=== PATIENT | female | born 1975 | race Caucasian/White ===

== ENCOUNTER 2016-12-18 19:47 | Inpatient (IN) ==
[2016-12-18] MEDS ORDERED: MOTRIN PO ONE (20:01)
[2016-12-18 20:44] LABS: BILIRUBIN URINE NEGATIVE (NEGATIVE); BLOOD URINE 2+ (NEGATIVE); CLARITY CLEAR (CLEAR); COLOR YELLOW; GLUCOSE URINE NEGATIVE (NEGATIVE); LEUKOCYTES URINE 2+ (NEGATIVE); NITRITE URINE POSITIVE (NEGATIVE); PROTEIN URINE 2+(100 mg/dL) mg/dL (NEGATIVE); URINE EPITHELIAL CELLS <10 /HPF (<10); URINE WBC <10 /HPF (<10); UROBILINOGEN URINE NORMAL
[2016-12-18 20:45] LABS: URINE CAST NONE SEEN /LPF; URINE CRYSTAL NONE SEEN /HPF; URINE CULTURE PL NEEDED? YES; URINE SOURCE CLEAN CATCH
[2016-12-18] MEDS ORDERED: DEMEROL IV ONE (21:06)
[2016-12-18] MEDS ORDERED: PHENERGAN IV ONE (21:06)
[2016-12-18 21:23] LABS: BASO% 0.2 % (0.0-0.8); EOS# 0.02 X1000 (0.0-0.7); EOS% 0.1 % (0.0-10.0); HEMATOCRIT 28.8 % (37.0-47.0); HEMOGLOBIN 8.5 g/dL (12.0-16.0); IMM GRAN# 0.08 X1000 (0.0-0.04); IMM GRAN% 0.4 % (0.0-0.5); LYMPH# 1.47 X1000 (1.2-3.4); MANUAL DIFF NEEDED? NO; MCH 20.7 PG (27-31); MCHC 29.5 g/dL (33-37); MCV 70.2 FL (81-99); MONO# 1.63 X1000 (0.11-0.59); MONO% 7.7 % (1.7-9.3); MPV 9.5 FL (7.4-10.4); NEUT% 84.6 % (42.2-75.2); PLT 258 X1000 (130-400)
[2016-12-18 21:39] LABS: AGAP 14; ALBUMIN 3.8 g/dL (3.5-5.0); ALKALINE PHOSPHATASE 67 U/L (32-104); AMYLASE 32 U/L (20-200); BUN 6 mg/dL (8-22); CALCIUM 8.9 mg/dL (8.8-10.2); CHLORIDE 93 mmol/L (98-107); COSMO 254; GOT 12 U/L (10-30); GPT 15 U/L (10-36); LIPASE 15 U/L (13-60); SODIUM 127 mmol/L (136-145); TCO2 20 mmol/L (25-35); TOTAL PROTEIN 6.6 g/dL (6.3-8.3)
[2016-12-18] MEDS ORDERED: NORCO-7.5 PO PRN (21:53)
[2016-12-18] MEDS ORDERED: NS 1,000 ML IV ONE (21:53)
[2016-12-18] MEDS ORDERED: GENTAMICIN IV PER PHARMACY MISC SCH (22:00)
--- NOTE | 2016-12-18 22:48 | Diag Imaging Result Doc PS360 ---
EXAM: CT ABD/PELVIS W/ IV CONT ONLY HISTORY: pain TECHNIQUE: Dose reduction protocol COMPARISON: None. FINDINGS: Normal spleen, pancreas, gallbladder, and adrenal glands. Tiny hypodense hepatic lesion which is nonspecific but may simply represent a cyst. There are several small left renal cysts. Irregular enhancement of the right kidney. Slight distention to the right ureter. Normal aorta. There is a fat filled small anterior abdominal wall hernia several centimeters above the umbilicus. Small amount of fluid is present within it. Stool is found throughout the colon. Air-filled loops of small bowel with slight distention in the midabdomen. Questionable fibroid in the posterior uterus measuring 4 cm. Small ovarian cysts. IMPRESSION: 1.Right-sided pyelonephritis 2.Small anterior abdominal wall hernia 3.Constipation 4.I believe there is a uterine fibroid 5.Possible enteritis or ileus. Electronically signed by Antoni Hatfield 12/18/2016 10:46 PM
[2016-12-18] MEDS ORDERED: GENTAMICIN IV SCH (23:00)
[2016-12-18] MEDS: ROCEPHIN 1 GM/NS 1 GM/50 ML IVPB IV SCH (23:00)
[2016-12-18] MEDS ORDERED: NS IV SCH (23:00)
[2016-12-19] MEDS ORDERED: NS IV SCH (04:35)
[2016-12-19] MEDS ORDERED: GENTAMICIN IV SCH (04:35)
[2016-12-19] MEDS: NORCO-7.5 PO PRN ×2 (08:48→22:18)
[2016-12-19] MEDS: TYLENOL PO PRN ×2 (09:45→16:45)
[2016-12-19] MEDS: NS 1,000 ML IV SCH ×3 (09:49→22:18)
[2016-12-19 12:28] LABS: HEMATOCRIT 26.7 % (37.0-47.0); HEMOGLOBIN 7.8 g/dL (12.0-16.0); MCH 20.8 PG (27-31); MCHC 29.2 g/dL (33-37); MCV 71.2 FL (81-99); MPV 9.2 FL (7.4-10.4); RBC 3.75 XMIL (4.2-5.4)
[2016-12-19 12:46] LABS: AGAP 12; BUN 11 mg/dL (8-22); CALCIUM 8.2 mg/dL (8.8-10.2); CHLORIDE 99 mmol/L (98-107); COSMO 266; POTASSIUM 3.5 mmol/L (3.5-5.1); SODIUM 133 mmol/L (136-145); TCO2 22 mmol/L (25-35)
[2016-12-19] MEDS ORDERED: LACTULOSE PO ONE (14:52)
--- NOTE | 2016-12-19 15:20 | HISTORY AND PHYSICAL ---
CHIEF COMPLAINT: Right flank pain. Right lower quadrant pain x3 days. Fever. HISTORY OF PRESENT ILLNESS: This is a 41-year-old female with a prior history of medullary sponge kidney and prior substance abuse. She presented to the emergency room complaining of 3 days of right flank pain and right lower quadrant pain. Describing this pain as an aching type pain, she rates it as 7/10 at its worst and 1- 2/10 at its least. She has no other accompanying symptoms. No relieving or exacerbating symptoms. She denies recent kidney stone. She did say that on Sunday she fell at work and landed on her back and she was not evaluated prior to this ER visit. She was noted to have a temperature of 102.6 degrees in triage with a white count of 21. Blood cultures and urine culture were drawn. CT of the abdomen and pelvis revealed no stones, no hydro with right-sided pyelonephritis, constipation and possible enteritis or ileus. She was given gentamicin and Rocephin in the emergency room and admitted for further evaluation and treatment. PAST MEDICAL HISTORY: Medullary sponge kidney, frequent UTI. PAST SURGICAL HISTORY: . SOCIAL HISTORY: She smokes half a pack a day. She has prior substance abuse, but has been clean for 11 months. ALLERGIES: Levaquin which causes a rash. HOME MEDICATIONS: None. REVIEW OF SYSTEMS: A 14 point review of systems is discussed with patient with pertinent positives being right flank pain, right lower quadrant pain. She denied chest pain, palpitations, syncope, dizziness, shortness of breath, cough, PND, orthopnea, nausea, vomiting , diarrhea, constipation, black or bloody vomitus, black or bloody stools, hematuria, dysuria. frequency, urgency. PHYSICAL EXAMINATION: VITAL SIGNS: Blood pressure is 110/49 with a heart rate of 96, respirations are 20, temperature is 99.4 degrees with oxygen saturation of 97% on room air. CARDIOVASCULAR: Regular rate and rhythm. S1 and S2 are appreciated. PULMONARY: Breath sounds are clear with no increased work of breathing noted. GASTROINTESTINAL: Abdomen is soft, nontender, nondistended with bowel sounds in all 4 quadrants. BACK: No CVAT. No spine tenderness. MUSCULOSKELETAL: Good range of motion to joints. NEUROLOGIC: She is alert and oriented x3 with cranial nerves 2-12 grossly intact. SKIN: Warm and dry with no rashes or lesions noted. DIAGNOSTICS: WBC is 21.06 with hemoglobin 8.5, hematocrit 28.8, platelets of 258. Sodium is 127, potassium 3, BUN 6, creatinine 0.6 with a glucose of 113. Urinalysis is positive for protein, 2+ blood and nitrites, 10-20 microscopic red blood cells, but less than 10 microscopic white blood cells. Urine culture is pending. CT of the abdomen and pelvis as stated above. ASSESSMENT: 1. Leukocytosis. 2. Right flank pain after a fall 24 hours prior. 3. Hypokalemia. 4. Fever. 5. Questionable urinary tract infection. 6. Constipation. PLAN: The patient will be admitted to the hospital. Blood cultures and urine cultures were drawn in the emergency room. She was given Rocephin. We will add gentamicin and we will continue awaiting culture results. We will give hydration, trend labs. She does state that this started after a fall landing on her back at work, so we will continue the Motrin q. 6 hours. She is noted to be pretty constipated on the CT. We will give lactulose and MiraLAX. Further treatments pending hospital course. Dictated by GILA Alvarez for Heber Lundberg MD cc: GILA Alvarez MD pt examined, agree with above APENOT MTDD
[2016-12-19] MEDS ORDERED: TORADOL IV ONE (15:48)
[2016-12-19] MEDS ORDERED: MORPHINE IV PRN (15:48)
[2016-12-19 17:31] LABS: UR AMPHETAMINES QUAL PRESUMPTIVE POSITIVE (NONE DETECT); UR BARBITUATES QUAL NONE DETECTED (NONE DETECT); UR BENZODIAZEPIN QUAL NONE DETECTED (NONE DETECT); UR COCAINE QUAL NONE DETECTED (NONE DETECT); UR MDMA QUAL NONE DETECTED (NONE DETECT); UR METHADONE QUAL NONE DETECTED (NONE DETECT)
[2016-12-19 17:32] LABS: UR CANNABINOIDS QUAL NONE DETECTED (NONE DETECT); UR METHAMPHETAMINE QUAL PRESUMPTIVE POSITIVE (NONE DETECT); UR OPIATES QUAL NONE DETECTED (NONE DETECT); UR OXYCODONE QUAL NONE DETECTED (NONE DETECT); UR PCP QUAL NONE DETECTED (NONE DETECT); UR TCA QUAL NONE DETECTED (NONE DETECT)
[2016-12-19] MEDS: MIRALAX PO SCH (22:17)
[2016-12-19] MEDS: ROCEPHIN 1 GM/NS 1 GM/50 ML IVPB IV SCH (22:17)
[2016-12-19] MEDS: MOTRIN PO PRN (22:18)
[2016-12-20] MEDS: GENTAMICIN IV SCH (01:08)
[2016-12-20] MEDS: NS 1,000 ML IV SCH (01:08)
[2016-12-20] MEDS: NS IV SCH (01:08)
[2016-12-20] MEDS: NORCO-7.5 PO PRN ×2 (04:33→16:35)
[2016-12-20 06:55] LABS: HEMATOCRIT 25.2 % (37.0-47.0); HEMOGLOBIN 7.1 g/dL (12.0-16.0); MCH 20.2 PG (27-31); MCHC 28.2 g/dL (33-37); MCV 71.8 FL (81-99); RBC 3.51 XMIL (4.2-5.4)
[2016-12-20 07:04] LABS: AGAP 13; BUN 12 mg/dL (8-22); CALCIUM 8.4 mg/dL (8.8-10.2); CHLORIDE 103 mmol/L (98-107); COSMO 271; POTASSIUM 3.1 mmol/L (3.5-5.1); SODIUM 136 mmol/L (136-145); TCO2 21 mmol/L (25-35)
[2016-12-20 07:06] LABS: IRON SATURATION 3 %; TIBC 258 ug/dL
[2016-12-20 07:07] LABS: TOTAL IRON 7 ug/dL (49-151); UNBOUND IRON 251 ug/dL (112-346)
[2016-12-20] MEDS: MIRALAX PO SCH ×2 (08:30→20:51)
[2016-12-20] MEDS: MOTRIN PO PRN (08:31)
[2016-12-20] MEDS ORDERED: POTASSIUM CHLORIDE IV SCH (10:30)
[2016-12-20] MEDS ORDERED: KCL IV SCH (10:30)
[2016-12-20] MEDS ORDERED: NS IV SCH (10:30)
[2016-12-20] MEDS: NS + KCL 40 MEQ 1,000 ML IV SCH ×2 (11:06→20:50)
[2016-12-20] MEDS: FOLIC ACID 1 MG in NS 50 ML IV SCH (14:30)
[2016-12-20] MEDS: LACTULOSE PO SCH (14:30)
--- NOTE | 2016-12-20 14:48 | PROGRESS NOTE ---
DATE: 12/20/2016 SUBJECTIVE: The patient is asleep at the time of exam. She does wake to her name being called. She denies any complaints. She does doze back off to sleep. OBJECTIVE: Vital Signs: Blood pressure is 109/60, with a heart rate of 88, respirations are 20, temperature is 99 degrees, with room air saturations of 100%. Cardiovascular: Regular rate and rhythm. S1, S2 appreciated. Pulmonary: Breath sounds are clear. No increased work of breathing noted. Gastrointestinal: Abdomen soft, nontender, nondistended with bowel sounds in all 4 quadrants. Musculoskeletal: Good range of motion of joints. Neurologic: She is alert and oriented x3. LABS: Her WBC is 14.9 with a hemoglobin of 7.1, hematocrit 25.2, and platelets of 231,000. Sodium 136, potassium 3.1, BUN 12, creatinine 0.7, with a glucose of 84. ASSESSMENT AND PLAN: 1. Anemia. We have no prior hemoglobin and hematocrit to compare to. She denies any known source of bleeding or any history of GI bleed. Will Hemoccult stools. We will transfuse 1 unit of packed cells and trend her labs. 2. Leukocytosis. WBC is decreasing. We will continue with her antibiotics. Of note, she does have 1 blood culture as well as a urine culture that her growing gram- negative rods. The 2nd blood culture has no growth after 48 hours. 3. Right flank pain. The patient states that her pain is better controlled. It is being controlled with Preston 7.5. It looks like she is getting it every 6 hours. We will continue this. 4. Hypokalemia. Will replete and follow electrolytes. 5. Fever. We will continue to monitor her vital signs. 6. Urinary tract infection. She is growing gram-negative rods. We will continue with her IV coverage. Once sensitivities return, antibiotics may be changed as appropriate. 7. Constipation. We will continue with her bowel regimen of MiraLAX b.i.d. We will add lactulose daily as she has not had a bowel movement. Further treatments pending hospital course. Dictated by GILA Alvarez for Heber Lundberg MD cc: GILA Alvarez MD pt examined, agree with above APENOT MTDD
[2016-12-20 17:53] LABS: OCCULT BLOOD 1 NEGATIVE (NEGATIVE)
[2016-12-20] MEDS: ROCEPHIN 1 GM/NS 1 GM/50 ML IVPB IV SCH ×2 (20:50→21:32)
[2016-12-20] MEDS: TYLENOL PO PRN (20:51)
[2016-12-21] MEDS: NORCO-7.5 PO PRN ×4 (00:06→22:51)
[2016-12-21] MEDS: GENTAMICIN IV SCH (00:06)
[2016-12-21] MEDS: NS IV SCH (00:06)
[2016-12-21] MEDS: MOTRIN PO PRN ×3 (00:07→16:33)
[2016-12-21 07:19] LABS: HEMATOCRIT 29.9 % (37.0-47.0); MCH 21.8 PG (27-31); MCHC 30.1 g/dL (33-37); MCV 72.6 FL (81-99); MPV 10.6 FL (7.4-10.4); RBC 4.12 XMIL (4.2-5.4)
[2016-12-21 07:34] LABS: AGAP 15; BUN 7 mg/dL (8-22); CALCIUM 8.4 mg/dL (8.8-10.2); CHLORIDE 106 mmol/L (98-107); COSMO 274; MAGNESIUM 1.7 mg/dL (1.5-2.7); SODIUM 139 mmol/L (136-145); TCO2 18 mmol/L (25-35)
[2016-12-21] MEDS: NS + KCL 40 MEQ 1,000 ML IV SCH ×2 (08:48→19:48)
[2016-12-21] MEDS: LACTULOSE PO SCH (08:49)
[2016-12-21] MEDS: MIRALAX PO SCH ×2 (08:49→20:54)
[2016-12-21] MEDS: FOLIC ACID 1 MG in NS 50 ML IV SCH (15:10)
--- NOTE | 2016-12-21 15:19 | Diag Imaging Result Doc PS360 ---
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 FINDINGS: There are several hypoechoic masses involving the wall of the uterus, most compatible with uterine leiomyomas. The largest measures up to 3.8 x 3.3 x 3.2 cm. The uterus measures 8.7 x 6.3 x 6.8 cm. The endometrium measures up to 1.2 cm in thickness. The left ovary is obscured by overlying bowel. There are several normal-appearing right ovarian follicles measuring up to a centimeter. The right ovary measures up to 3.5 cm in the greatest dimension. There is a small amount of fluid in the pelvis, mainly around the right ovary. This is nonspecific but is often physiologic. The right ovary exhibits normal Doppler flow. There are no definite solid adnexal masses. IMPRESSION: 1.Several hypoechoic uterine wall masses, most compatible with uterine leiomyomas. 2.Small amount of pelvic free fluid, mainly around the right ovary that is probably physiologic. Electronically signed by Andrea De León 12/21/2016 3:16 PM
--- NOTE | 2016-12-21 19:38 | PROGRESS NOTE ---
DATE: 12/21/2016 SUBJECTIVE: The patient states that she feels much better than when she was admitted although she still is not back to her normal. She denies any chest pain, shortness of breath , cough, fever or chills. OBJECTIVE: Vital Signs: Blood pressure is 137/70 with a heart rate of 86, respirations 19, temperature is 99 degrees with room air saturations of 97-99%. Cardiovascular: Regular rate and rhythm. S1, S2 appreciated. Pulmonary: Breath sounds are clear. No increased work of breathing noted. Gastrointestinal: Soft, nontender, nondistended. Bowel sounds in all 4 quadrants. Musculoskeletal: Good range of motion of joints. Neurologic: She is alert and oriented x3. LABS: WBC is 7 with hemoglobin 9, hematocrit 29.9, platelets of 187,000. Sodium is 139, potassium 4, BUN 7, creatinine 0.8, glucose of 77. Stool for occult blood is negative. ASSESSMENT AND PLAN: 1. Anemia. The patient denies any bleeding, black or bloody vomitus or stools while hospitalized. Her Hemoccult was negative. We will continue to monitor her hemoglobin and hematocrit. 4. Hypokalemia. Resolved. 6. E. coli urinary tract infection/pyelonephritis/sepsis This is resistant to Bactrim, ampicillin and Augmentin. We will continue gentamicin as well as Rocephin. 7. Constipation. We will continue with bowel regimen. She had 3 bowel movements in the last 24 hours. 8. E. coli blood culture to right hand although blood culture to left AC had no growth. We will repeat blood cultures. Continue antibiotics. Dictated by GILA Alvarez for Heber Lundberg MD cc: GILA Alvarez MD pt examined, continue iv abx and follow closely , [facility] was [facility]
[2016-12-21] MEDS: ROCEPHIN 1 GM/NS 1 GM/50 ML IVPB IV SCH (21:34)
[2016-12-21] MEDS: TYLENOL PO PRN (22:56)
[2016-12-22] MEDS: NS IV SCH ×2 (00:25→23:38)
[2016-12-22] MEDS: GENTAMICIN IV SCH ×2 (00:25→23:38)
[2016-12-22] MEDS: MOTRIN PO PRN ×2 (03:55→15:17)
[2016-12-22] MEDS: NORCO-7.5 PO PRN ×4 (04:59→22:52)
[2016-12-22] MEDS: NS + KCL 40 MEQ 1,000 ML IV SCH (06:30)
[2016-12-22 06:35] LABS: AGAP 11; BUN 5 mg/dL (8-22); CALCIUM 7.9 mg/dL (8.8-10.2); CHLORIDE 99 mmol/L (98-107); COSMO 262; POTASSIUM 4.3 mmol/L (3.5-5.1); SODIUM 132 mmol/L (136-145); TCO2 22 mmol/L (25-35)
[2016-12-22 06:46] LABS: HEMATOCRIT 27.1 % (37.0-47.0); MCH 21.3 PG (27-31); MCHC 29.5 g/dL (33-37); MCV 72.1 FL (81-99); MPV 10.3 FL (7.4-10.4); RBC 3.76 XMIL (4.2-5.4)
[2016-12-22] MEDS: LACTULOSE PO SCH (10:47)
[2016-12-22] MEDS: MIRALAX PO SCH ×2 (10:47→21:09)
[2016-12-22] MEDS: ICAR-C PO SCH ×2 (10:52→21:09)
--- NOTE | 2016-12-22 10:55 | PROGRESS NOTE ---
DATE: 12/22/2016 SUBJECTIVE: The patient states she feels much better today. She has menstrual cramps that began yesterday. She states they are not as severe today. She denies any chest pain , shortness of breath, cough, fever or chills. OBJECTIVE: Vital Signs: Blood pressure is 130/71 with a heart rate of 72, respirations 16, temperature 99.7 oral with room air saturations of 94% to 97%. Cardiovascular: Regular rate and rhythm S1, S2 appreciated. Pulmonary: Breath sounds are clear. No increased work of breathing noted. Gastrointestinal: Soft, nontender, nondistended. Bowel sounds in all 4 quadrants. Musculoskeletal: Good range of motion of joints. Neurologic: She is alert and orient x3. Extremities: No clubbing, cyanosis, or edema. Calves are nontender. Pulses are palpable x4. LABS: WBC is 7.87 with hemoglobin of 8, hematocrit 27.1, and platelets of 208, 000. Sodium is 132, potassium 4.3, BUN 5, creatinine 0.7 with a glucose of 96. ASSESSMENT AND PLAN: 1. Anemia. The patient has started her menstrual period. She states that she had to has known fibroids and that she has been having increased menstrual periods having them every 2-3 weeks. This one started less than 2 weeks from the last. We will start her on iron and continue to monitor her hemoglobin and hematocrit. She will need to be followed up with Gynecology. 2. Leukocytosis, resolved. 3. Right flank pain. This has resolved. 4. Hypokalemia, resolved. 5. Escherichia coli urinary tract infection/pyelonephritis. We will continue with the current antibiotics. 6. Constipation. We will continue bowel regimen. She has had another bowel movement. 7. Escherichia coli blood culture to right hand with culture left arm No growth. This was obtained on 12/18/2016. We repeated blood cultures on 12/21/2106. We are waiting for their results to verify bacteremia vs contamination. Dictated by GILA Alvarez for Heber Lundberg MD cc: GILA Alvarez MD pt still with fever, will continue abx and follow closely, needs to ambulate APENOT MTDD
--- NOTE | 2016-12-22 10:59 | PROGRESS NOTE ---
PLEASE DELETE MTDD
[2016-12-22] MEDS ORDERED: FERRLECIT 125 MG in NS 100 ML IV ONE (11:16)
[2016-12-22] MEDS: FOLIC ACID 1 MG in NS 50 ML IV SCH (18:20)
[2016-12-22] MEDS: ROCEPHIN 1 GM/NS 1 GM/50 ML IVPB IV SCH (21:09)
[2016-12-23] MEDS: NORCO-7.5 PO PRN (04:59)
[2016-12-23 06:00] LABS: BASO% 0.3 % (0.0-0.8); EOS# 0.13 X1000 (0.0-0.7); EOS% 1.7 % (0.0-10.0); HEMATOCRIT 31.5 % (37.0-47.0); HEMOGLOBIN 9.2 g/dL (12.0-16.0); IMM GRAN# 0.04 X1000 (0.0-0.04); IMM GRAN% 0.5 % (0.0-0.5); LYMPH# 1.51 X1000 (1.2-3.4); LYMPH% 20.2 % (20.5-51.1); MANUAL DIFF NEEDED? YES; MCH 20.8 PG (27-31); MCHC 29.2 g/dL (33-37); MCV 71.1 FL (81-99); MONO# 0.82 X1000 (0.11-0.59); MONO% 10.9 % (1.7-9.3); MPV 10.1 FL (7.4-10.4); NEUT% 66.4 % (42.2-75.2); PLT 252 X1000 (130-400); RBC 4.43 XMIL (4.2-5.4)
[2016-12-23 06:19] LABS: AGAP 11; BUN 5 mg/dL (8-22); CALCIUM 8.5 mg/dL (8.8-10.2); CHLORIDE 96 mmol/L (98-107); COSMO 263; POTASSIUM 3.3 mmol/L (3.5-5.1); SODIUM 132 mmol/L (136-145); TCO2 26 mmol/L (25-35)
[2016-12-23 06:35] LABS: BANDS 1 % (0-1); BASO 2 % (0-1); LYMPHS 16 % (21-51); MONO 7 % (1-9)
[2016-12-23] MEDS ORDERED: KLOR-CON PO ONE (09:07)
[2016-12-23] MEDS: MIRALAX PO SCH (09:18)
[2016-12-23] MEDS: ICAR-C PO SCH (09:18)
[2016-12-23 13:01] VITALS: BP 121/72
--- NOTE | 2016-12-23 13:42 | DISCHARGE SUMMARY ---
ADMISSION DATE: 12/18/2016 DISCHARGE DATE: 12/23/2016 DIAGNOSES: 1. Pyelonephritis. 2. Leukocytosis, resolved. 3. Escherichia coli urinary tract infection. 4. Fever, resolved. 5. Hypokalemia, resolved. 6. Anemia. DIAGNOSTIC DATA: On 12/21/2016, pelvis ultrasound revealed several uterine leiomyomas. CT of the abdomen and pelvis revealed right-sided pyelonephritis with a small anterior abdominal wall hernia, constipation, uterine fibroid, possible enteritis or colitis. Microbiology: Urine culture revealed E. coli. Blood cultures revealed no growth after 48 hours. HOSPITAL COURSE: Ms. Lewis presented to the emergency room complaining of right lower quadrant pain and fever. She was found to have pyelonephritis. Urine culture and blood cultures were obtained, which urine culture did return E. coli. She did receive Rocephin IV as well as gentamicin every 24 hours. She has improved gradually. Today she is much improved with no complaints. She was found to be anemic with an hemoglobin and hematocrit at the lowest of 7.1 and 25.2 for which she was transfused 1 unit of packed cells. Her hemoglobin and hematocrit have been stable at 8 to 9 and 29 to 31. She states she does have a history of anemia. She has been having a lot of menstrual bleeding, having cycles every 2 weeks that are heavy. Of note, she did start her menstrual cycle while in the hospital. We discussed uterine fibroids and her need to see a [employer] operations consultant. She was given IV iron as well and started in Icar-C. She was quite constipated per CT scan. She was given MiraLAX and lactulose. She did have 5 bowel movements, and she did state after about the third bowel movement, her right lower quadrant pain subsided. We did follow electrolytes and replete as appropriate. Her T-max was 102. She has been afebrile. She remains afebrile today. DISCHARGE PHYSICAL EXAMINATION: CARDIOVASCULAR: Regular rate and rhythm. S1, S2 appreciated. PULMONARY: Breath sounds are clear. No increased work of breathing noted. GASTROINTESTINAL: Abdomen is soft, nontender and nondistended with bowel sounds in all 4 quadrants. BACK: No CVAT. No spine tenderness. EXTREMITIES: No cyanosis, clubbing or edema. Calves are nontender. Pulses are palpable x4. NEUROLOGICAL: She is alert and oriented x3 with cranial nerves II through XII grossly intact. DISCHARGE VITAL SIGNS: Blood pressure is 113/72, heart rate 88, respirations 16 , room air saturations are 96% to 100%. DISCHARGE ACTIVITY: As tolerated. DISCHARGE MEDICATIONS: 1. MiraLAX 17 g b.i.d. as needed. 2. Icar-C one b.i.d. 3. Diflucan 150 mg daily. 4. Omnicef 300 mg p.o. b.i.d. x5 days. FOLLOWUP: She is to follow up with her primary care provider in the next 2 to 3 weeks, sooner if needed. She was instructed to return to the emergency room or call to be seen sooner for temperature greater than 101.5. Return if nausea or vomiting, return of flank pain or any questions or concerns she may have. She is being discharged home in stable condition with family members. This is greater than a 30 minute discharge from 10:10 to 10:45. Dictated by GILA Alvarez for Heber Lundberg MD cc: GILA Alvarez MD pt examined, agree with above APENOT MTDD
--- NOTE | 2017-01-11 02:14 | PROVIDER DOCUMENTATION ---
This chart was entered by Andreea Hart Scribe, acting as scribe for Antonio Brown MD. HPI-Abdominal Pain/GI Problem - General Chief Complaint: Abdominal Pain Stated Complaint: FLANK PAIN Time Seen by Provider: 12/18/16 21:02 Source: patient Allergies/Adverse Reactions: Patient Allergies Allergy/AdvReac Type Severity Reaction Status Date / Time levofloxacin [From Levaquin] Allergy Mild RASH Verified 10/27/13 15:48 Home Medications: Home Medication List Medication Instructions Recorded Confirmed Last Taken Type CefDINIR [Omnicef] 300 mg PO BID #20 capsule 12/23/16 Unknown Rx Fluconazole [Diflucan] 150 mg PO DAILY #3 tablet 12/23/16 Unknown Rx Iron Carbonyl/Ascorbic Acid 1 each PO BID #60 tablet 12/23/16 Unknown Rx [Icar-C] Polyethylene Glycol 3350 [Miralax] 17 gm PO BID #0 powder, packet 12/23/16 Unknown Rx - History of Present Illness-ABD Nature of Presenting Problems: 41 year old F presents to the ED with a cc of RUQ ABD pain x2 days. Pt states that she believed it was a UTI because she had some burning with urination but states that she took AZO and is no longer having burning. Abdominal Pain Onset Location: reports: RUQ Pain Radiation: reports: no radiation Quality of Pain: reports: aching Severity in ED: reports: mild Onset/Duration: reports: 2 days ago Timing: reports: still present Bruising or Bleeding Gums?: No Similar Symptoms Previously?: No Recently seen or treated by another doctor?: No Review of Systems - Adult - REVIEW OF SYSTEMS - ADULT Constitutional: reports: fever. denies: chills Eyes: reports: no symptoms reported Ears, Nose, Mouth & Throat: reports: no symptoms reported Cardiovascular: reports: no symptoms reported Respiratory: reports: no symptoms reported Gastrointestinal: reports: abdominal pain. denies: diarrhea, nausea, vomiting Genitourinary: reports: dysuria. denies: hematuria Musculoskeletal: reports: no symptoms reported Integumentary: reports: no symptoms reported Neurological: reports: no symptoms reported Psychiatric: reports: no symptoms reported Endocrine: reports: no symptoms reported Hematologic/Lymphatic: reports: no symptoms reported Allergic/Immunologic: reports: no symptoms reported All Other Systems: Reviewed and Negative Past History - Adult - PAST MEDICAL HISTORY-ADULT Review of Records: reports: Nursing Assessment Review, Medications Reviewed Major Childhood Illnesses: reports: denies history Genitourinary: reports: chronic UTI's - PRIOR SURGERIES/PROCEDURES Surgical/Procedure History: reports: - IMMUNIZATION STATUS Childhood Immunizations: See Nurse Assessment Flu Vaccine: See Nurse Assessment - SOCIAL HISTORY Smoking: cigarettes Provider spent 3-5 mins advising pt. on dangers of tobacco.: Discussed manners to quit use, and f/u contacts for add'l counseling. Substance Use: none presently/history of abuse Alcohol Use Frequency: never Physical Exam-General - PHYSICAL EXAM-ADULT Initial Vital Signs Reviewed: Yes - CONSTITUTIONAL General Appearance: alert, mild distress - RESPIRATORY Respiratory: chest non-tender, lungs clear, normal breath sounds - CARDIOVASCULAR Cardiovascular: normal peripheral pulses, regular rate, rhythm, no edema - GASTROINTESTINAL (ABDOMEN) Abdominal Exam: tenderness (generalized ABD tenderness but greater in the RUQ), Fields's sign - SKIN Integumentary: normal color, normal turgor, warm/dry - PSYCHIATRIC Psych/Mental Status: normal mood/affect, normal thought content, normal thought process, oriented x 3 Progress - PLAN OF CARE/RESULTS Progress/Plan/Lab Results: Vital Signs - 8 hr 12/18/16 19:51 Temperature 102.6 F H Pulse Rate 126 H Respiratory Rate 25 H Blood Pressure 128/56 O2 Sat by Pulse Oximetry 98 Bedside Urine ED: Urine Bedside Start: 12/18/16 20:10 Freq: Status: Active Activity Type Activity Date Activity User E-Sign Co-Sign Detail Recorded Client Recorded Date Recorded By Document 12/18/16 20:10 [id number] 12/18/16 20:10 [id number] 12/18/16 20:10 Point of Care [Bedside Point of Care] -Lot # [id number] - Results Negative -Control Line Visible? Yes Laboratory Results - last 24 hr 12/18/16 12/18/16 20:00 20:00 Urine Source CLEAN CATCH Urine Color YELLOW Urine Clarity CLEAR Urine pH 6.0 Ur Specific [place] 1.010 Urine Protein 2+(100 mg/dL) A Urine Ketones NEGATIVE Urine Blood 2+ A Urine Nitrite POSITIVE A Urine Bilirubin NEGATIVE Urine Urobilinogen NORMAL Urine Microscopic RBC 10-20 A Urine WBC 2+ A Urine Microscopic WBC <10 Ur Epithelial Cells <10 Urine Crystals NONE SEEN Urine Bacteria NEGATIVE Urine Casts NONE SEEN Urine Yeast NONE SEEN Urine Glucose NEGATIVE Urine Test NEGATIVE Orders Category Date Time Status AMYLASE [CHEM] Stat Lab 12/18/16 19:59 Ordered BLOOD CULTURE [BLDCUL] Stat Lab 12/18/16 20:00 Ordered CBC WITH DIFF [HEME] Stat Lab 12/18/16 19:59 Ordered COMPREHENSIVE METABOLIC PANEL [CHEM] Stat Lab 12/18/16 19:59 Ordered LACTATE, PLASMA [CHEM] Stat Lab 12/18/16 19:59 Ordered LIPASE [CHEM] Stat Lab 12/18/16 19:59 Ordered TEST-URINE [PREG] Stat Lab 12/18/16 20:00 Completed URINE CULTURE [RM] Routine Lab 12/18/16 20:45 Ordered urinalysis [URINALYSIS PL W/POSS RFLX CULT] [URINALYSIS Lab 12/18/16 20:00 Completed ] Stat Ibuprofen [Motrin] Med 12/18/16 20:01 Discontinued 800 mg PO NOW ONE Result Diagrams: 12/23/16 05:20 12/23/16 05:20 - CONSULTS/PCP/HOSPITALIST Notification #1 *Consult/PCP/Hospitalist*: Dr. Lundberg(hospitalist) Time Discussed: 21:52 Consult Disposition: Admit Departure - Departure Date of Disposition Decision: 12/18/16 Time of Disposition Decision: 21:53 DIAGNOSIS: Pyelonephritis Disposition: ADMITTED INPATIENT 09 Certified Medical Emergency: Emergent Condition: Stable - Critical Care Note This patient required my direct & personal management of CC.: No This chart was documented by the indicated scribe, (Andreea Hart Scribe) and accurately reflects the services I performed and decisions made by me, Antonio Brown MD, as attested by the provider's signature.
== END 2016-12-23 13:00 | disposition home or self-care (01) ==
LOC: P.ED 19:47 → P.MEDSURG 22:09 → SUATTDRO 22:09
PROVIDERS: ADMIT Internal Medicine; ATTEND Internal Medicine

== ENCOUNTER 2019-01-18 12:37 | Inpatient (IN) ==
[2019-01-18] MEDS ORDERED: TYLENOL PO ONE (13:04)
[2019-01-18] MEDS ORDERED: ZOSYN 4.5 GM in NS 100 ML IV ONE (13:12)
[2019-01-18] MEDS ORDERED: NS 1,000 ML IV ONE ×2 (13:13→13:49)
--- NOTE | 2019-01-18 13:25 | Diag Imaging Result Doc PS360 ---
EXAM: CHEST-1 VIEW 01/18/2019 HISTORY: fever TECHNIQUE: Erect AP portable at 1333 COMMENT: There is no evidence of acute cardiac or pulmonary disease. There are no previous studies available for comparison. IMPRESSION: No evidence of acute disease. Electronically signed by Sonu Albarran 01/18/2019 1:23 PM
[2019-01-18] MEDS ORDERED: ZOFRAN IV ONE (13:30)
[2019-01-18 13:33] LABS: BASO# 0.04 X1000 (0.0-0.2); BASO% 0.1 % (0.0-0.8); EOS# 0.03 X1000 (0.0-0.7); EOS% 0.1 % (0.0-10.0); HEMATOCRIT 29.7 % (37.0-47.0); HEMOGLOBIN 8.5 g/dL (12.0-16.0); IMM GRAN# 0.26 X1000 (0.0-0.04); IMM GRAN% 0.9 % (0.0-0.5); LYMPH# 1.13 X1000 (1.2-3.4); LYMPH% 4.1 % (20.5-51.1); MCH 19.4 PG (27-31); MCHC 28.6 g/dL (33-37); MCV 67.8 FL (81-99); MONO% 5.4 % (1.7-9.3); MPV 10.4 FL (7.4-10.4); NEUT# 24.76 X1000 (1.4-6.5); NEUT% 89.4 % (42.2-75.2); PLT 290 X1000 (130-400); RBC 4.38 XMIL (4.2-5.4); RDW 18.6 % (11.5-14.5); WBC 27.72 X1000 (4.8-10.8)
[2019-01-18 13:38] LABS: BILIRUBIN URINE NEGATIVE (NEGATIVE); BLOOD URINE TRACE (NEGATIVE); CLARITY SL. CLOUDY (CLEAR); COLOR AMBER; GLUCOSE URINE NEGATIVE (NEGATIVE); KETONE URINE TRACE mg/dL (NEGATIVE); LEUKOCYTES URINE 1+ (NEGATIVE); NITRITE URINE NEGATIVE (NEGATIVE); PH URINE 6.5; PROTEIN URINE 2+(100 mg/dL) mg/dL (NEGATIVE); SP GRAVITY URINE 1.015; UROBILINOGEN URINE NORMAL
[2019-01-18 13:44] LABS: AGAP 15; ALBUMIN 3.6 g/dL (3.5-5.0); ALKALINE PHOSPHATASE 71 U/L (32-104); BUN 9 mg/dL (8-22); CALCIUM 8.3 mg/dL (8.8-10.2); CHLORIDE 96 mmol/L (98-107); CK PROFILE 31 U/L (24-173); COSMO 262; CREATININE 0.9 mg/dL (0.5-0.9); ESTIMATED GFR > 60; GLUCOSE 77 mg/dL (70-104); GOT 22 U/L (10-30); GPT 14 U/L (10-36); INR 1.4; POTASSIUM 3.5 mmol/L (3.5-5.1); PROTIME 17.9 Seconds (11.0-16.0); PTT 34.3 Seconds (22.3-41.8); SODIUM 132 mmol/L (136-145); TCO2 22 mmol/L (25-35); TOTAL PROTEIN 6.3 g/dL (6.3-8.3)
[2019-01-18] MEDS ORDERED: NS 1,000 ML ONE (13:48)
[2019-01-18] MEDS ORDERED: NS 500 ML ONE (13:48)
[2019-01-18] MEDS ORDERED: NS 310 ML IV ONE (13:49)
[2019-01-18 13:53] LABS: URINE EPITHELIAL CELLS >10 /HPF (<10); URINE WBC 20-40 /HPF (<10)
[2019-01-18 13:54] LABS: URINE BACTERIA 1+ /HFP; URINE SOURCE CLEAN CATCH
[2019-01-18] MEDS ORDERED: TORADOL IV ONE (13:57)
[2019-01-18 14:21] LABS: ANISOCYTOSIS 1+; BANDS 6 % (0-1); LYMPHS 7 % (21-51); MONO 2 % (1-9); SEGS 85 % (42-75)
[2019-01-18] MEDS ORDERED: LEVOPHED 8 MG in D5 1/2 NS 250 ML IV SCH (14:45)
[2019-01-18] MEDS ORDERED: VANCOMYCIN IV PER PHARMACY MISC SCH (15:00)
[2019-01-18] MEDS: NS 1,000 ML IV SCH ×2 (15:23→20:58)
--- NOTE | 2019-01-18 15:23 | Diag Imaging Result Doc PS360 ---
EXAM: CT ABD/PELVIS W/IV CONT ONLY 01/18/2019 HISTORY: DIFFUSE ABD PAIN, FEBRILE, R CVA TENDERNESS TECHNIQUE: This exam was performed using automated exposure control, adjustment of mA or kV according to patient size, and/or use of iterative reconstruction technique. COMMENT: The current examination is compared with the previous study of 12/18/2016. There is some dependent atelectasis in the lung bases. The appearance of the visualized portion of the chest has not changed significantly. There is a cyst in the anterior right hepatic lobe. There is periportal edema present in the liver which was not the case on the previous study. The liver appears slightly enlarged. There are no apparent gallstones. The spleen is enlarged measuring over 13.5 cm in diameter. There is abnormal decreased contrast enhancement present in the upper pole of the right kidney. There is nephrolithiasis at least on the left side where there is a 3 mm calculus in the mid collecting system. There is perinephric edema present on the right. This is worse than on the previous study. There is a small amount of fluid present adjacent to the inferior edge of the liver. The pancreas is within normal limits. There is a small ventral hernia present in the epigastrium which contains fluid. This has not changed since the previous study. There is an umbilical fat-containing hernia. There is some fluid in the small bowel without significant dilatation. There is fecal debris in the descending colon. Pelvis: There is a 2.1 cm cyst in the right ovary. There is no significant free fluid. There is formed stool in the rectum. The appendix is normal in appearance. The regional skeleton is stable in appearance. IMPRESSION: 1. Periportal edema in the liver which is a nonspecific finding but may be seen in hepatitis. 2. Splenomegaly. 3. Nephrolithiasis and pyelonephritis, on the right if not on the left. Minimal ascites. 4. Right ovarian cyst. Electronically signed by Sonu Albarran 01/18/2019 3:20 PM
[2019-01-18] MEDS ORDERED: VANCOMYCIN 2,300 MG in NS 500 ML IV ONE (15:45)
--- NOTE | 2019-01-18 15:50 | PROVIDER DOCUMENTATION ---
This chart was entered by Apple Estrada Scribe, acting as scribe for Liz Waters MD. HPI-Female /OB/Breast - General Chief Complaint: Back Pain Stated Complaint: BACK PAIN / NAUSEA Time Seen by Provider: 01/18/19 12:56 Source: reports: patient Allergies/Adverse Reactions: Patient Allergies Allergy/AdvReac Type Severity Reaction Status Date / Time levofloxacin [From Levaquin] Allergy Mild RASH Verified 01/18/19 12:50 Home Medications: Home Medication List Medication Instructions Recorded Confirmed Last Taken Type CefDINIR [Omnicef] 300 mg PO BID #20 capsule 12/23/16 Unknown Rx Fluconazole [Diflucan] 150 mg PO DAILY #3 tablet 12/23/16 Unknown Rx Iron Carbonyl/Ascorbic Acid 1 each PO BID #60 tablet 12/23/16 Unknown Rx [Icar-C] Polyethylene Glycol 3350 [Miralax] 17 gm PO BID #0 powder, packet 12/23/16 Unknown Rx - History of Present Illness-Female /OB Nature of Presenting Problem: 43 y/o female presents to ED with low back pain, generalized abdominal pain, pelvic pain, nausea, fever, and headache onset yesterday. Pt reports she was admitted for UTI/sepsis 2 years ago and had to have a blood transfusion. Pt states she started taking a family member's keflex yesterday. Pt reports LMP 1 w koi ago. Pt is alert and oriented. Does patient report she is ?: No Location of complaint: reports: generalized flank, other (generalized abdomen; pelvic; head) Radiation: reports: none Quality of Pain: reports: sharp Severity in ED: reports: moderate, severe Onset/Duration: reports: 24 hours ago Timing: reports: still present Context/Activities at Onset: reports: none Vaginal Symptoms: reports: no symptoms Vaginal Bleeding Amount: None Urinary Symptoms: reports: low back pain Modifying Factors: worse with: palpation Associated Symptoms: reports: back/neck pain (low back), fever/chills, nausea, other (generalized abdominal pain; pelvic pain; headache) Similar Symptoms Previously?: No Recently seen or treated by another doctor?: No Review of Systems - Adult - REVIEW OF SYSTEMS - ADULT Constitutional: reports: fever. denies: chills Eyes: reports: no symptoms reported Ears, Nose, Mouth & Throat: reports: no symptoms reported Cardiovascular: denies: chest pain, palpitations Respiratory: denies: cough, shortness of breath Gastrointestinal: reports: abdominal pain, nausea. denies: diarrhea, vomiting Genitourinary: reports: other (pelvic pain). denies: incontinence Musculoskeletal: reports: back pain (low). denies: joint pain Integumentary: reports: no symptoms reported Neurological: denies: dizziness/vertigo, seizure Psychiatric: reports: no symptoms reported Endocrine: reports: no symptoms reported Hematologic/Lymphatic: reports: no symptoms reported Allergic/Immunologic: reports: no symptoms reported All Other Systems: Reviewed and Negative Past History - Adult - PAST MEDICAL HISTORY-ADULT Review of Records: reports: Old Records Reviewed, Nursing Assessment Review, Medications Reviewed Major Childhood Illnesses: reports: denies history Genitourinary: reports: chronic UTI's - PRIOR SURGERIES/PROCEDURES Surgical/Procedure History: reports: - IMMUNIZATION STATUS Childhood Immunizations: See Nurse Assessment Flu Vaccine: See Nurse Assessment - FAMILY HISTORY Family History: reviewed, not pertinent - SOCIAL HISTORY Smoking: less than 1 pack/day Provider spent 3-5 mins advising pt. on dangers of tobacco.: Discussed manners to quit use, and f/u contacts for add'l counseling. Substance Use: none presently/history of abuse Alcohol Use Frequency: never Living Situation: family Physical Exam-General - PHYSICAL EXAM-ADULT Initial Vital Signs Reviewed: Yes - CONSTITUTIONAL General Appearance: appears well, alert, moderate distress - EYES Eyes: PERRL/EOMI, pink conjunctivae - HEAD, EARS, NOSE, MOUTH & THROAT HENMT: normocephalic/atraumatic, moist mucous membranes, normal ENT inspection - NECK Neck: non-tender, full range of motion - RESPIRATORY Respiratory: chest non-tender, lungs clear, normal breath sounds - CARDIOVASCULAR Cardiovascular: tachycardia - GASTROINTESTINAL (ABDOMEN) Abdominal Exam: normal bowel sounds, soft, tenderness (diffusely; worse in RLQ, RUQ, epigastric) - MUSCULOSKELETAL Back Exam: normal inspection, no vertebral tenderness, CVA tenderness (R) Extremity: normal range of motion, non-tender - SKIN Integumentary: normal color, warm/dry - NEUROLOGIC Neurologic: grossly normal - PSYCHIATRIC Psych/Mental Status: normal mood/affect, normal thought content, normal thought process, oriented x 3 Progress - PLAN OF CARE/RESULTS Progress/Plan/Lab Results: Vital Signs - 8 hr 06/29/19 12:48 01/18/19 13:47 01/18/19 14:06 Temperature 102.4 F H 103.1 F H 101.0 F H Pulse Rate 112 H 109 H 104 H Respiratory Rate 24 30 H 24 Blood Pressure 90/45 114/63 94/49 O2 Sat by Pulse Oximetry 100 99 99 01/18/19 14:37 01/18/19 14:39 01/18/19 14:43 Temperature 100.4 F H Pulse Rate 105 H 101 H 102 H Respiratory Rate 26 H 25 H 19 Blood Pressure 114/57 114/57 113/58 O2 Sat by Pulse Oximetry 99 97 98 01/18/19 15:25 Temperature 99.2 F Pulse Rate 92 H Respiratory Rate 25 H Blood Pressure 104/50 O2 Sat by Pulse Oximetry 99 Bedside Urine ED: Urine Bedside Start: 01/18/19 13:11 Freq: Status: Active Protocol: Activity Type Activity Date Activity User E-Sign Co-Sign Detail Recorded Client Recorded Date Recorded By Document 01/18/19 13:11 [id number] 01/18/19 13:11 [id number] 01/18/19 13:11 Point of Care [Bedside Point of Care] -Lot # [id number] - Results Negative -Control Line Visible? Yes Laboratory Results - last 24 hr 01/18/19 01/18/19 01/18/19 13:00 13:00 13:00 WBC 27.72 H RBC 4.38 Hgb 8.5 L Hct 29.7 L MCV 67.8 L MCH 19.4 L MCHC 28.6 L RDW Std Deviation 18.6 H Plt Count 290 MPV 10.4 Immature Gran % (Auto) 0.9 H Neut % (Auto) 89.4 H Lymph % (Auto) 4.1 L Mccone % (Auto) 5.4 Eos % (Auto) 0.1 Baso % (Auto) 0.1 Immature Gran # (Auto) 0.26 H Neut # (Auto) 24.76 H Lymph # (Auto) 1.13 L Mccone # (Auto) 1.50 H Eos # (Auto) 0.03 Baso # (Auto) 0.04 Segmented Neutrophils 85 H Band Neutrophils 6 H Lymphocytes 7 L Monocytes 2 Anisocytosis 1+ PT INR PTT (Actin FS) Sodium 132 L Potassium 3.5 Chloride 96 L Carbon Dioxide 22 L Anion Gap 15 BUN 9 Creatinine 0.9 Estimated GFR/1.73 m2 > 60 BUN/Creatinine Ratio 10 Glucose 77 Calculated Osmolality 262 Calcium 8.3 L Total Bilirubin 0.80 AST 22 ALT 14 Alkaline Phosphatase 71 Creatine Kinase 31 Troponin T Total Protein 6.3 Albumin 3.6 Globulin 3.0 Albumin/Globulin Ratio 1.0 Amylase Lipase Plasma Lactate Urine Source CLEAN CATCH Urine Color PADMINI Urine Clarity SL. CLOUDY A Urine pH 6.5 Ur Specific [place] 1.015 Urine Protein 2+(100 mg/dL) A Urine Ketones TRACE Urine Blood TRACE Urine Nitrite NEGATIVE Urine Bilirubin NEGATIVE Urine Urobilinogen NORMAL Urine Microscopic RBC 10-20 A Urine WBC 1+ A Urine Microscopic WBC 20-40 A Ur Epithelial Cells >10 A Urine Bacteria 1+ Urine Glucose NEGATIVE 01/18/19 01/18/19 01/18/19 13:00 13:00 13:00 WBC RBC Hgb Hct MCV MCH MCHC RDW Std Deviation Plt Count MPV Immature Gran % (Auto) Neut % (Auto) Lymph % (Auto) Mccone % (Auto) Eos % (Auto) Baso % (Auto) Immature Gran # (Auto) Neut # (Auto) Lymph # (Auto) Mccone # (Auto) Eos # (Auto) Baso # (Auto) Segmented Neutrophils Band Neutrophils Lymphocytes Monocytes Anisocytosis PT 17.9 H INR 1.40 PTT (Actin FS) 34.3 Sodium Potassium Chloride Carbon Dioxide Anion Gap BUN Creatinine Estimated GFR/1.73 m2 BUN/Creatinine Ratio Glucose Calculated Osmolality Calcium Total Bilirubin AST ALT Alkaline Phosphatase Creatine Kinase Troponin T < 0.010 Total Protein Albumin Globulin Albumin/Globulin Ratio Amylase 29 Lipase Plasma Lactate Urine Source Urine Color Urine Clarity Urine pH Ur Specific [place] Urine Protein Urine Ketones Urine Blood Urine Nitrite Urine Bilirubin Urine Urobilinogen Urine Microscopic RBC Urine WBC Urine Microscopic WBC Ur Epithelial Cells Urine Bacteria Urine Glucose 01/18/19 01/18/19 13:00 13:05 WBC RBC Hgb Hct MCV MCH MCHC RDW Std Deviation Plt Count MPV Immature Gran % (Auto) Neut % (Auto) Lymph % (Auto) Mccone % (Auto) Eos % (Auto) Baso % (Auto) Immature Gran # (Auto) Neut # (Auto) Lymph # (Auto) Mccone # (Auto) Eos # (Auto) Baso # (Auto) Segmented Neutrophils Band Neutrophils Lymphocytes Monocytes Anisocytosis PT INR PTT (Actin FS) Sodium Potassium Chloride Carbon Dioxide Anion Gap BUN Creatinine Estimated GFR/1.73 m2 BUN/Creatinine Ratio Glucose Calculated Osmolality Calcium Total Bilirubin AST ALT Alkaline Phosphatase Creatine Kinase Troponin T Total Protein Albumin Globulin Albumin/Globulin Ratio Amylase Lipase 8 L Plasma Lactate 5.0 H Urine Source Urine Color Urine Clarity Urine pH Ur Specific [place] Urine Protein Urine Ketones Urine Blood Urine Nitrite Urine Bilirubin Urine Urobilinogen Urine Microscopic RBC Urine WBC Urine Microscopic WBC Ur Epithelial Cells Urine Bacteria Urine Glucose Orders Category Date Time Status Cardiac Monitoring DIRECTED Care 01/18/19 12:51 Active IV Insertion ORDERED Care 01/18/19 12:51 Completed Notify MD of + Sepsis Screen NOW Care 01/18/19 12:51 Active Notify Physician As Ordered Care 01/18/19 12:51 Active CHEST-1 VIEW [RAD] Stat Exams 01/18/19 12:[address] ABD/PELVIS W/IV CONT ONLY [CT] Stat Exams 01/18/19 13:12 Completed AMYLASE [CHEM] Stat Lab 01/18/19 13:00 Completed BLOOD CULTURE [BLDCUL] Stat Lab 01/18/19 13:00 Results CBC WITH DIFF [HEME] Stat Lab 01/18/19 13:00 Completed CK PROFILE [SP CHEM] Stat Lab 01/18/19 13:00 Completed COMPREHENSIVE METABOLIC PANEL [CHEM] Stat Lab 01/18/19 13:00 Completed LACTATE, PLASMA [CHEM] Lab 01/18/19 13:05 Completed LACTATE, PLASMA [CHEM] Lab 01/18/19 16:00 Uncollected LACTATE, PLASMA [CHEM] Lab 01/18/19 19:00 Uncollected LIPASE [CHEM] Stat Lab 01/18/19 13:00 Completed PROTIME WITH INR [COAG] Stat Lab 01/18/19 13:00 Completed PTT [COAG] Stat Lab 01/18/19 13:00 Completed TROPONIN T Stat Lab 01/18/19 13:[address] W/POSS RFLX CULT [URINALYSIS] Stat Lab 01/18/19 13:00 Completed URINE CULTURE [RM] Routine Lab 01/18/19 13:54 Ordered 0.9% Sodium Chloride Inj [Ns] 1,000 ml Med 01/18/19 13:48 Discontinued .ROUTE As directed 0.9% Sodium Chloride Inj [Ns] 1,000 ml Med 01/18/19 15:00 Active IV 150 mls/hr 0.9% Sodium Chloride Inj [Ns] 1,000 ml Med 01/18/19 13:13 Discontinued IV 999 mls/hr 0.9% Sodium Chloride Inj [Ns] 1,000 ml Med 01/18/19 13:49 Discontinued IV 999 mls/hr 0.9% Sodium Chloride Inj [Ns] 310 ml Med 01/18/19 13:49 Discontinued IV 999 mls/hr 0.9% Sodium Chloride Inj [Ns] 500 ml Med 01/18/19 13:48 Discontinued .ROUTE As directed Acetaminophen [Tylenol] Med 01/18/19 13:04 Discontinued 1,000 mg PO NOW ONE Dextrose 5%-0.45% NaCl Inj [D5 / Ns] 250 ml Med 01/18/19 14:45 Active Norepinephrine [Levophed] 8 mg IV As Directed mls/hr Ketorolac [Toradol] Med 01/18/19 13:57 Discontinued 30 mg IV NOW ONE Ondansetron [Zofran] Med 01/18/19 13:30 Discontinued 4 mg IV NOW ONE Pharmacy Order [Vancomycin IV Per Pharmacy] Med 01/18/19 15:00 Active 1 each MISC DIRECTED Piperacillin/Tazobactam [Zosyn] 4.5 gm Med 01/18/19 13:12 Discontinued 0.9% Sodium Chloride Inj [Ns] 100 ml IV NOW Vancomycin 1,900 mg Med 01/19/19 09:45 Active 0.9% Sodium Chloride Inj [Ns] 500 ml IV Q18H Vancomycin 2,300 mg Med 01/18/19 15:45 Active 0.9% Sodium Chloride Inj [Ns] 500 ml IV ONCE Oxygen Device Stat Oth 01/18/19 12:51 Active Result Diagrams: 01/18/19 13:00 01/18/19 13:00 - XRAY 1 XRAY Study: Chest Impression: Normal ([facility] [address], [address], [place] [address] Department of Imaging Patient: MELISSA PANDEYDM Date: 01/18/19MR#: [id number] : 1975ADM Status: REG ERAt#: [id number] Age/Sex: 43/FRoom/Bed: Loc: P.ED Ordering Physician: Liz Waters MD Family Physician: None,PCP Reason for Procedure: fever Signed EXAM: CHEST-1 VIEW 01/18/2019 HISTORY: fever TECHNIQUE: Erect AP portable at 1333 COMMENT: There is no evidence of acute cardiac or pulmonary disease. There are no previous studies available for comparison. IMPRESSION: No evidence of acute disease. Electronically signed by Sonu Albarran 01/18/2019 1:23 PM 01/18/19 1323 Interpreting Physician: Sonu Albarran MD Dictated Date/Time: 01/18/19 1322 cc: Liz Waters MD; None,PCP) - CT/MRI 1 CT Study: Abdomen, Pelvis Impression: See EMR Report ([facility] [address] [place] [address], [address], [place] [address] Department of Imaging Patient: MELISSA PANDEYADM Date: 01/18/19#: [id number] : 1975ADM Status: REG ERAcct#: [id number] Age/Sex: 43/FRoom/Bed: Loc: P.ED Ordering Physician: Liz Waters MD Family Physician: None,PCP Reason for Procedure: DIFFUSE ABD PAIN, FEBRILE, R CVA TENDERNESS Signed EXAM: CT ABD/PELVIS W/IV CONT ONLY 01/18/2019 HISTORY: DIFFUSE ABD PAIN, FEBRILE, R CVA TENDERNESS TECHNIQUE: This exam was performed using automated exposure control, adjustment of mA or kV according to patient size, and/or use of it erative reconstruction technique. COMMENT: The current examination is compared with the previous study of 12/18/2016. There is some dependent atelectasis in the lung bases. The appearance of the visualized portion of the chest has not changed significantly. There is a cyst in the anterior right hepatic lobe. There is periportal edema present in the liver which was not the case on the previous study. The liver appears slightly enlarged. There are no apparent gallstones. The spleen is enlarged measuring over 13.5 cm in diameter. There is abnormal decreased contrast enhancement present in the upper pole of the right kidney. There is nephrolithiasis at least on the left side where there is a 3 mm calculus in the mid collecting system. There is perinephric edema present on the right. This is worse than on the previous study. There is a small amount of fluid present adjacent to the inferior edge of the liver. The pancreas is within normal limits. There is a small ventral hernia present in the epigastrium which contains fluid. This has not changed since the previous study. There is an umb ilical fat-containing hernia. There is some fluid in the small bowel without significant dilatation. There is fecal debris in the descending colon. Pelvis: There is a 2.1 cm cyst in the right ovary. There is no significant free fluid. There is formed stool in the rectum. The appendix is normal in appearance. The regional skeleton is stable in appearance. IMPRESSION: 1. Periportal edema in the liver which is a nonspecific finding but may be seen in hepatitis. 2. Splenomegaly. 3. Nephrolithiasis and pyelonephritis, on the right if not on the left. Minimal ascites. 4. Right ovarian cyst. Electronically signed by Sonu Albarran 01/18/2019 3:20 PM 01/18/19 1520 Interpreting Physician: Sonu Albarran MD Dictated Date/Time: 01/18/19 1515 cc: Liz Waters MD; None,PCP) - CONSULTS/PCP/HOSPITALIST Notification #1 *Consult/PCP/Hospitalist*: GILA Carrion for hospitalist Time Discussed: 15:05 Reason/Comments: Sepsis Consult Disposition: Admit Departure - Departure Date of Disposition Decision: 01/18/19 Time of Disposition Decision: 15:05 DIAGNOSIS: Pyelonephritis Sepsis Qualifiers: Sepsis type: sepsis due to unspecified organism Qualified Code(s): A41.9 - Sepsis, unspecified organism Abdominal pain Qualifiers: Abdominal location: unspecified location Qualified Code(s): R10.9 - Unspecified abdominal pain UTI (urinary tract infection) Qualifiers: Urinary tract infection type: site unspecified Hematuria presence: with hematuria Qualified Code(s): N39.0 - Urinary tract infection, site not specified; R31.9 - Hematuria, unspecified Disposition: ADMITTED INPATIENT 09 Certified Medical Emergency: Emergent Condition: Stable Referrals and Follow-Ups: None,PCP [Primary Care Provider] - Discharge Education: Steps to Quit Smoking, [id number] - Critical Care Note This patient required my direct & personal management of CC.: Yes Total Time (mins): 45 Critical Care Statement: This patient required my direct personal management to treat or rule out processes, the absence of which, could potentiallly result in sudden, clinically significant life or limb threatening deterioration. Attestation - Physician/ [place] Attestation Patient care was provided by Advanced Practice Provider:: No The physician spent face to face time with patient:: Yes Advanced Practice Provider documentation review:: Supervising physician onsite and consulted in the evaluation and care of this patient. The physician did have a face to face encounter with the patient. This chart was documented by the indicated scribe, (Apple Estrada Scribe) and accurately reflects the services I performed and decisions made by me, Liz Waters MD, as attested by the provider's signature.
[2019-01-18] MEDS ORDERED: NS 1,000 ML IV SCH (16:30)
[2019-01-18] MEDS: MORPHINE IV PRN ×2 (17:28→20:54)
--- NOTE | 2019-01-18 18:34 | HISTORY AND PHYSICAL ---
CHIEF COMPLAINT: Back pain and nausea. HISTORY OF PRESENT ILLNESS: This is a 43-year-old female who presents to the emergency room complaining of low back pain, generalized abdominal pain with nausea, fever, and headache for the last 24 hours. She states that she has had pyelonephritis in the past and that she feels she has this again. She did start taking Keflex yesterday. This was a family member's prescription. She is unsure of the strength of the Keflex. She was found to have pyelonephritis bilateral with right greater than left according to CT. Temperature T-max was a 103.1 degrees in the emergency room. She was treated with sepsis protocol, blood pressures had dropped into the 70s after receiving 30 mL/kg bolus per sepsis protocol. Blood pressures remained in the 103 to 110 range systolic and heart rates have decreased from the 120s to the 80s and 90s. PAST MEDICAL HISTORY: Pyelonephritis, uterine fibroids, medullary sponge kidney, frequent UTI. PAST SURGICAL HISTORY: . SOCIAL HISTORY: She smokes about a half a pack a day. She has a history of illicit drug use, although she was not forthcoming on questioning about this today. ALLERGIES: Levaquin which causes a rash. HOME MEDICATIONS: A list will be obtained by the nursing staff and once verified, will review and restart as appropriate. REVIEW OF SYSTEMS: Discussed with the patient with pertinent positives stated in the HPI. She denied any syncope, dizziness, chest pain, palpitations, shortness of breath, cough, fever, chills, recent weight loss or weight gain, any black or bloody vomitus or stools, any gross hematuria. PHYSICAL EXAMINATION: GENERAL: This is a 43-year-old female who is lying on the stretcher in the emergency room in mild distress. VITAL SIGNS: Blood pressure is 102/47, heart rate of 89, respirations are 20 to 22, temperature is 99.2 degrees oral with O2 saturation 98-100%. HEENT: Pupils equal, round, react to light. EOMs are intact. Sclerae anicteric. Head is normocephalic, atraumatic. Mucous membranes are moist. NECK: Supple with trachea midline. CARDIOVASCULAR: Regular rate and rhythm. S1 and S2 appreciated. She has no lower extremity edema. Calves are nontender bilateral with peripheral pulses palpable x4 extremities. PULMONARY: Breath sounds are clear with no increased work of breathing noted. Chest rises and falls symmetric respiration. GASTROINTESTINAL: Abdomen soft with diffuse tenderness primarily in the right lower quadrant. She does have bilateral CVAT with right greater than left. SKIN: Warm and dry. NEUROLOGIC: She is alert, oriented x3. LABS: WBC is 27.7 with hemoglobin 8.5, hematocrit 29.7, platelets 290,000. INR is 1.4. Sodium 132, potassium 3.5, BUN 9, creatinine 0.5 with a glucose of 77. Urinalysis reveals 10 to 20 red blood cells, 20 to 40 white blood cells, greater than 10 epithelial cells, 1+ bacteria. Blood cultures and urine culture pending. CT scan of the abdomen and pelvis with IV contrast reveals a 2.1 cyst in the right ovary with no significant free fluid. There is formed stool in the rectum. Appendix is normal. Regional skeleton is stable in appearance. There is periportal edema in the liver which is nonspecific finding may be seen in hepatitis, splenomegaly, nephrolithiasis and pyelonephritis on the right, not on the left. Minimal ascites and right ovarian cyst. ASSESSMENT AND PLAN: 1. Sepsis, urosepsis. 2. Bilateral pyelonephritis. 3. A 3 mm right renal stone in the collecting system. 4. Leukocytosis. 5. Fever. Tylenol 6. Minimal ascites. 7. Periportal edema which may be seen in hepatitis per CT scan. 8. Deep vein thrombosis prophylaxis, will use SCDs and gastrointestinal prophylaxis Prilosec. PLAN: The patient will be admitted to ICU, placed on telemetry for close monitoring. We will start Levophed if pressures drop below 100 systolic. We will continue with IV hydration. We will continue with vancomycin and Zosyn for antibiotic coverage and further antibiotics will be culture driven. Will obtain a hepatitis profile, repeat CBC, CMP in the morning, for deep vein thrombosis prophylaxis will use SCDs and gastrointestinal prophylaxis Prilosec. Further treatments pending hospital course. Dictated by GILA Alvarez for Pradip Reyes MD cc: GILA Alvarez MD [facility]
--- NOTE | 2019-01-18 19:48 | HISTORY AND PHYSICAL ---
ADDENDUM: Patient seen and examined by myself. Full note dictated and discussed with nurse practitioner. The patient presented to the hospital with back pain, nausea and fever. She notes that she did have a UTI, which resulted in sepsis approximately 2 years ago. She has a known history of chronic anemia and chronic [employer] bleeding, for which she is supposed to be following up outpatient. We will admit her to the hospital, place her on antibiotics. Currently we will put her in the ICU, as her blood pressures were low at 90/45. Currently they are up to 110. She has had a fever. She certainly has sepsis again, with a white count of 27. We will place her on antibiotics, IV fluids, pressor agents if needed. cc: Pradip Reyes MD
[2019-01-18] MEDS ORDERED: MAALOX PLUS LIQUID PO PRN (20:48)
[2019-01-18] MEDS: ZOSYN 3.375 GM in NS 50 ML IV SCH (20:54)
[2019-01-18] MEDS: ZOFRAN IV PRN (20:54)
[2019-01-19] MEDS: MORPHINE IV PRN ×6 (01:22→22:04)
[2019-01-19] MEDS: ZOFRAN IV PRN ×2 (01:22→07:07)
[2019-01-19] MEDS: ZOSYN 3.375 GM in NS 50 ML IV SCH ×3 (03:09→15:41)
[2019-01-19] MEDS: NS 1,000 ML IV SCH ×3 (04:09→19:54)
[2019-01-19 06:25] LABS: BASO# 0.04 X1000 (0.0-0.2); BASO% 0.2 % (0.0-0.8); EOS# 0.13 X1000 (0.0-0.7); EOS% 0.7 % (0.0-10.0); HEMATOCRIT 26.5 % (37.0-47.0); HEMOGLOBIN 7.5 g/dL (12.0-16.0); IMM GRAN# 0.08 X1000 (0.0-0.04); IMM GRAN% 0.4 % (0.0-0.5); LYMPH# 1.48 X1000 (1.2-3.4); LYMPH% 7.8 % (20.5-51.1); MCH 19.3 PG (27-31); MCHC 28.3 g/dL (33-37); MCV 68.3 FL (81-99); MONO# 1.19 X1000 (0.11-0.59); MONO% 6.3 % (1.7-9.3); NEUT# 16.07 X1000 (1.4-6.5); NEUT% 84.6 % (42.2-75.2); PLT 237 X1000 (130-400); RBC 3.88 XMIL (4.2-5.4); RDW 18.3 % (11.5-14.5); WBC 18.99 X1000 (4.8-10.8)
[2019-01-19 07:00] LABS: SEGS 88 % (42-75)
[2019-01-19 07:01] LABS: LYMPHS 7 % (21-51); MONO 5 % (1-9)
[2019-01-19] MEDS: PRILOSEC PO SCH (07:07)
[2019-01-19 09:11] LABS: AGAP 11; ALBUMIN 2.7 g/dL (3.5-5.0); ALKALINE PHOSPHATASE 85 U/L (32-104); BUN 12 mg/dL (8-22); CALCIUM 7.4 mg/dL (8.8-10.2); CHLORIDE 105 mmol/L (98-107); COSMO 274; CREATININE 0.7 mg/dL (0.5-0.9); ESTIMATED GFR > 60; GLUCOSE 66 mg/dL (70-104); GOT 34 U/L (10-30); GPT 32 U/L (10-36); POTASSIUM 2.8 mmol/L (3.5-5.1); SODIUM 138 mmol/L (136-145); TCO2 22 mmol/L (25-35); TOTAL PROTEIN 5.6 g/dL (6.3-8.3)
[2019-01-19] MEDS: VANCOMYCIN 1,900 MG in NS 500 ML IV SCH (09:43)
[2019-01-19] MEDS ORDERED: KLOR-CON PO ONE (09:50)
[2019-01-19] MEDS: TYLENOL PO PRN ×2 (11:47→17:03)
[2019-01-19] MEDS ORDERED: MOTRIN PO ONE (18:18)
[2019-01-19] MEDS: NICODERM PATCH TD SCH (18:28)
[2019-01-19] MEDS ORDERED: MERREM 500 MG in NS 50 ML IV SCH (19:45)
[2019-01-19] MEDS: MERREM 1 GM in NS 50 ML IV SCH (20:17)
[2019-01-20] MEDS: MORPHINE IV PRN ×5 (02:55→16:52)
[2019-01-20] MEDS: NS 1,000 ML IV SCH (02:58)
[2019-01-20] MEDS: MERREM 1 GM in NS 50 ML IV SCH ×3 (03:01→20:12)
[2019-01-20] MEDS: VANCOMYCIN 1,900 MG in NS 500 ML IV SCH (04:00)
[2019-01-20 05:56] LABS: BASO# 0.03 X1000 (0.0-0.2); BASO% 0.3 % (0.0-0.8); EOS# 0.21 X1000 (0.0-0.7); EOS% 1.8 % (0.0-10.0); HEMATOCRIT 24.7 % (37.0-47.0); HEMOGLOBIN 6.9 g/dL (12.0-16.0); IMM GRAN# 0.02 X1000 (0.0-0.04); IMM GRAN% 0.2 % (0.0-0.5); LYMPH# 1.07 X1000 (1.2-3.4); LYMPH% 9.4 % (20.5-51.1); MCH 19.2 PG (27-31); MCHC 27.9 g/dL (33-37); MCV 68.6 FL (81-99); MONO# 0.48 X1000 (0.11-0.59); MONO% 4.2 % (1.7-9.3); MPV 10.5 FL (7.4-10.4); NEUT% 84.1 % (42.2-75.2); PLT 233 X1000 (130-400); RDW 18.7 % (11.5-14.5); WBC 11.41 X1000 (4.8-10.8)
[2019-01-20 06:14] LABS: AGAP 8; ALBUMIN 2.7 g/dL (3.5-5.0); ALKALINE PHOSPHATASE 84 U/L (32-104); BUN 7 mg/dL (8-22); CALCIUM 7.6 mg/dL (8.8-10.2); CHLORIDE 113 mmol/L (98-107); COSMO 281; CREATININE 0.5 mg/dL (0.5-0.9); ESTIMATED GFR > 60; GLUCOSE 94 mg/dL (70-104); GOT 46 U/L (10-30); GPT 38 U/L (10-36); POTASSIUM 3.2 mmol/L (3.5-5.1); SODIUM 142 mmol/L (136-145); TCO2 21 mmol/L (25-35); TOTAL PROTEIN 4.7 g/dL (6.3-8.3)
[2019-01-20] MEDS: TYLENOL PO PRN ×2 (06:23→16:49)
[2019-01-20] MEDS: PRILOSEC PO SCH (06:23)
--- NOTE | 2019-01-20 06:59 | PROGRESS NOTE ---
DATE: 01/19/2019 SUBJECTIVE: Patient continues to have a low-grade fever today. Currently with mom in the room she is having intense headache, backache, leg pain, and arm pain. This seems to [*]quietly in the room by herself. PHYSICAL EXAMINATION: Vital Signs: Temperature 99, pulse rate is [*] General: The patient is alert, alert She is in no acute distress. HEENT: Normocephalic. Cardiovascular: Regular rate. Chest: Clear and nonlabored. Abdomen: Soft. ASSESSMENT: 1. Sepsis secondary to urinary source. 2. Bilateral pyelonephritis. Unfortunately, her urine culture so far is negative so this is not helpful with her antibiotic choice. 3. A 3 mm right renal stone in the collecting system. 4. Leukocytosis. 5. Fever 6. [*] 7. Anemia of chronic disease. 8. Hypokalemia. Her white count has actually improved. She has dropped from 27 down to 17. She still has anemia at 17.6, but has a hemoglobin of 2.8, replaced. We will continue antibiotics today. Continue to follow. Hopefully, she can improve and transition out of the ICU. cc: Pradip Reyes MD
[2019-01-20] MEDS: NICODERM PATCH TD SCH (09:31)
[2019-01-20] MEDS ORDERED: KLOR-CON PO ONE (09:37)
[2019-01-20] MEDS ORDERED: NS 1,000 ML IV SCH ×2 (09:38→16:00)
[2019-01-20] MEDS ORDERED: MIRALAX PO SCH (10:00)
--- NOTE | 2019-01-20 10:04 | Diag Imaging Result Doc PS360 ---
US ABDOMEN-COMPLETE - 01/20/2019 INDICATION: liver cirrhosis TECHNIQUE: Fuentes scale, color Doppler, and duplex evaluation of the abdomen was performed. COMPARISON: CT abdomen and pelvis with 04/11/2019 FINDINGS: The liver appears enlarged measuring 21.5 cm. No focal masses are appreciated. Echotexture is normal. The IVC and aorta appear normal. The pancreas is partially obscured. The gallbladder is borderline hydropic measuring 9.8 x 5.0 cm. No cholelithiasis or sludge is appreciated. There is a normal caliber wall. The common bile duct appears dilated and measures 9.5 mm. The portal vein is patent with hepatopetal flow. Spleen is mildly enlarged at 13.5 cm. There is no hydronephrosis. There is a right pleural effusion measuring at least 5 cm within the right costophrenic sulcus. There is trace ascites. IMPRESSION: 1.Hepatosplenomegaly. 2.Dilated common bile duct and borderline hydropic gallbladder. No cholelithiasis. Consider follow-up with MRCP. 3.Right pleural effusion. 4.Trace ascites. Electronically signed by Elayne Villareal 01/20/2019 10:02 AM
[2019-01-20] MEDS: ATIVAN IV PRN ×2 (10:44→15:09)
--- NOTE | 2019-01-20 10:55 | Diag Imaging Result Doc PS360 ---
EXAM: CT ANGIOGRM PULMONARY ARTERIES HISTORY: PE suspected TECHNIQUE: Routine with IV contrast. 3-D post processing. COMPARISON: None. FINDINGS: There is appropriate opacification of the pulmonary arteries. No evidence for acute pulmonary embolism. No evidence for aortic aneurysm or dissection. There are bilateral pleural effusions right greater than left. No significant pericardial effusion is noted. There are coarse interstitial reticular markings and groundglass infiltrates within both upper lobes. There is atelectasis and edema at both lung bases. Images of the upper abdomen show a small hiatal hernia. There is splenomegaly. There is left nephrolithiasis. IMPRESSION: 1.No evidence for acute pulmonary embolism. 2.Bilateral pleural effusions right greater than left. 3.Upper lobe coarse interstitial and groundglass infiltrates. 4.Atelectasis and consolidation bilateral lower lobes right greater than left. This exam was performed using automated exposure control, adjustment of mA or kV according to patient size, and/or use of iterative reconstruction technique. Electronically signed by Elayne Villareal 01/20/2019 10:53 AM
--- NOTE | 2019-01-20 11:06 | PROGRESS NOTE ---
DATE: 01/20/2019 SUBJECTIVE: The patient reports that since last night, she started complaining of some shortness of breath and also abdominal pain located in the right upper quadrant. Denies any fever or chills. OBJECTIVE: Vital Signs: Temperature 98.1 degrees, heart rate 85, respiratory rate 16, blood pressure 113/58, O2 saturation 95% on room air. General: This is a chronically ill-appearing, 43- year-old, female, lying in bed in no acute distress. HEENT: Head is normocephalic, atraumatic. Mucous membranes dry. Neck: No JVD noted. No carotid bruits. No lymphadenopathy. No thyromegaly. Cardiovascular: S1, S2 heard. No murmurs, gallops, or rubs. Regular rate and rhythm. Respiratory: There is some rhonchi and minimal wheezing noted in both pulmonary bases. The patient is not using any accessory muscles or having work of breathing. Abdomen: Soft, a little bit tender to palpation in the right upper quadrant, but there are no signs of peritoneal irritation. Extremities: No clubbing, cyanosis, or edema. Peripheral pulses present in all legs. Neurological: The patient is alert and oriented x3. Moves 4 extremities. LABORATORY DATA: White cell count 11.41, hemoglobin 6.9, hematocrit 24.7, platelets 233,000. BMP remarkable for creatinine 0.5 with potassium 3.2. ASSESSMENT AND PLAN: 1. Sepsis secondary to bilateral pyelonephritis. Clinically, the patient is doing good. White cell count is getting better. She is not spiking any fever. Urine culture is negative, so we are going to order another one. Will continue to monitor this patient closely. 2. Acute respiratory failure. The patient is complaining of some shortness of breath, even though she is on room air right now. At this point, I think we are going to order a CT angiogram of the chest to rule out any pulmonary embolism. Will go from there. 3. Abdominal pain. The patient is complaining of abdominal pain since yesterday, and the abdominal ultrasound shows dilated common bile duct and borderline hydropic gallbladder. Considering that she is symptomatic, complaining of some abdominal pain, I think we will request a Gastroenterology consultation, so we can transfer this patient to [facility], and will go from there. 4. Minimal ascites/edema. The patient denies any alcohol consumption. At this point, I think we will continue to monitor this patient closely as well as CMP daily. 5. Disposition. Will transfer this patient to [facility] for further evaluation and treatment by Gastroenterology. cc: Viktor Ye MD MTDD
[2019-01-20] MEDS ORDERED: OFIRMEV 1000 MG/ISOTONIC SOLN 1,000 MG/100 ML BOTTLE IV ONE (12:24)
[2019-01-20] MEDS ORDERED: ATIVAN IV PRN (15:04)
[2019-01-20] MEDS ORDERED: MAALOX PLUS LIQUID PO PRN (15:05)
[2019-01-20] MEDS ORDERED: VANCOMYCIN IV PER PHARMACY MISC SCH (15:15)
[2019-01-20] MEDS ORDERED: LASIX IV STA (15:30)
[2019-01-20] MEDS ORDERED: VANCOMYCIN 1,700 MG in NS 250 ML IV SCH (16:00)
[2019-01-20] MEDS: KLOR-CON PO SCH ×2 (16:49→20:13)
--- NOTE | 2019-01-20 16:49 | EKG Report ---
Test Performed on : 01/20/2019 4:41:44 PM Test Reason : Baseline EKG Blood Pressure : / mmHG Vent. Rate : 093 BPM Atrial Rate : 093 BPM P-R Int : 130 ms QRS Dur : 084 ms QT Int : 356 ms P-R-T Axes : 040 085 077 degrees QTc Int : 442 ms Normal sinus rhythm. Normal ECG No previous ECGs available Confirmed by Sanjeev Hurst MD ([id number]) on 01/20/2019 8:56:53 PM
[2019-01-20] MEDS: VANCOMYCIN 1,700 MG in NS 250 ML IV SCH (17:11)
--- NOTE | 2019-01-20 17:19 | PROGRESS NOTE ---
DATE: 01/20/2019 INTERVAL HISTORY: Ms. Lewis was transferred from [facility] to [facility] for acute hypoxic respiratory failure, persistent right upper quadrant pain, documentation of hepatosplenomegaly and CBD dilatation on ultrasound. SUBJECTIVE: Patient appears in mild to moderate distress because of chills. Family is at bedside. She is frequently coming out of bed to urinate, and I had interrupted encounter with her. Currently temperature 101 degrees, pulse 91, respiratory rate 20 blood pressure 140/68. She is saturating 99% on 2 L nasal cannula. On physical examination, in moderate distress because of chills. Oral cavity is dry. She has decreased air entry on the right infrascapular region, inspiratory crackles on left infrascapular region. S1, S2 normal. No murmur, rub, gallop. Abdomen is soft. She has significant tenderness in right quadrant. No lower extremity edema. INTAKE AND OUTPUT: She is positive 5 L since admission. LABORATORIES: Suggestive of improving leukocytosis, microcytic hypochromic anemia, hypokalemia, hyperchloremia, normal kidney function, mild elevation of AST, ALT. MICROBIOLOGY: Blood culture has not shown any growth. Urine culture has not shown any growth, either. IMAGING: No new imaging, except electrocardiogram which has normal sinus rhythm. Pulmonary arteriogram today had bilateral pleural effusion, worse on the right side, and probably atelectasis, bilateral lower lobes. ASSESSMENT AND PLAN: 1. Sepsis due to bilateral pyelonephritis. 2. Acute hypoxic respiratory failure due to Bilateral pleural effusions.. 3. Microcytic hypochromic anemia - further historical data are pending. 5. Prior history of medullary sponge kidneys, multiple pyelonephritis, and left- sided nephrolithiasis. PLAN: Continue intravenous vancomycin and intravenous meropenem. Repeat urinalysis and urine culture. Her left nephrolithiasis did not have any hydronephrosis. Stop intravenous fluids. She has been ordered intravenous Lasix. I will continue to closely monitor her. Plan of care discussed with the patient and family members at bedside. All of their questions have been answered. She has already received 1 unit of PRBC for her anemia. cc: Fredrick Sarmiento MD [facility]
[2019-01-20 17:20] LABS: URINE SOURCE CLEAN CATCH
[2019-01-20 17:30] LABS: BILIRUBIN URINE NEGATIVE (NEGATIVE); BLOOD URINE NEGATIVE (NEGATIVE); COLOR STRAW; GLUCOSE URINE NEGATIVE (NEGATIVE); KETONE URINE NEGATIVE (NEGATIVE); LEUKOCYTES URINE NEGATIVE (NEGATIVE); NITRITE URINE NEGATIVE (NEGATIVE); PH URINE 6.5; PROTEIN URINE NEGATIVE (NEGATIVE); SP GRAVITY URINE 1.003; TURBIDITY URINE CLEAR (CLEAR); UROBILINOGEN URINE NORMAL (NORMAL)
[2019-01-20 17:31] LABS: UR EPITHELIAL CELLS <10 /HPF (<10); URINE BACTERIA NEGATIVE /HPF; URINE RBC <10 /HPF (<10); URINE WBC <10 /HPF (<10)
--- NOTE | 2019-01-20 19:31 | GASTROENTEROLOGY CONSULTATION ---
DATE: 01/20/2019 Patient was seen and examined with Dr. Lopez on 01/20/2019 evening rounds. MRCP has been ordered. Full dictation to follow. Thank you for this consultation. Dictated by GILA Park for Momo Lopez MD cc: GILA Simpson MD
[2019-01-20] MEDS ORDERED: LASIX IV ONE (20:00)
--- NOTE | 2019-01-20 20:01 | ECHO REPORT ---
ORDER DATE: 01/20/2019 INDICATION: Evaluate LV function. FINDINGS: 1. The right atrium appears normal in size at 2.4 cm. 2. Mild tricuspid regurgitation. RV systolic pressure of 49. 3. Normal RV size and systolic function. 4. No significant pulmonic insufficiency. 5. Normal left atrial size with a volume index of 21. 6. No mitral valve prolapse. Trace mitral regurgitation. No evidence of mitral stenosis. There is mitral annular calcification noted on some views. 7. Normal LV size with an end-diastolic dimension of 4.6. Normal wall thicknesses with a posterior and interventricular septal thickness of 0.8 cm each. Normal LV systolic function. Estimated EF is 60% with normal wall motion. 8. Aortic valve opens well. It is trileaflet. No evidence of stenosis or insufficiency. 9. Aorta appears normal in visualized segments. 10. There is no pericardial effusion seen. On some views, there is suggestion of ascites as well as possible pleural effusions. cc: MD Fredrick Jones MD
[2019-01-20] MEDS: MIRALAX PO SCH (20:13)
--- NOTE | 2019-01-20 20:18 | PULMONOLOGY CONSULTATION ---
DATE: 01/20/2019 REQUESTING PHYSICIAN: Dr. Rincon. REASON FOR CONSULTATION: Pneumonia and shortness of breath. HISTORY OF PRESENT ILLNESS: Ms. Lewis is a 43-year-old white female with ongoing tobacco history, prior history of pyelonephritis and sepsis, who carries a diagnosis of medullary sponge kidney with frequent urinary tract infections. The patient developed back pain, abdominal pain with nausea and fevers and has had episodes of vomiting during this hospitalization. The patient presented to [facility] [place] with bilateral pain, right greater than left, and a fever of 103 degrees. She did have transient hypotension. She had taken Keflex prior to her coming to the emergency room. Initial chest x-ray was clear. CT scan of the abdomen and pelvis revealed periportal edema in the liver, splenomegaly, and pyelonephritis right kidney with possible left kidney. The patient had significant leukocytosis. She received hydration. Initial white blood count was 27,000 and on successive days has dropped to 19,000 and then all 11,000. Her fever curve appears to be breaking, but she did have a 101 degree temperature at noon today. The patient has had increased shortness of breath and CT pulmonary angiogram was performed, which revealed bilateral effusions, right greater than left. Mild nonspecific interstitial changes, possibly related to pulmonary edema, and bibasilar atelectasis. CT scan was reviewed by this practitioner prior to her evaluation and she did receive a dose of Lasix. She reports she has urinated multiple times on the bedside commode (refuses a Hadley catheter) and her shortness of breath has significantly diminished. PAST MEDICAL HISTORY AND PROBLEM LIST: 1. Medullary sponge kidney as per above with frequent urinary tract infections. 2. History of uterine fibroids. 3. History of methamphetamine use according to prior urine toxicology screen in 2017. SOCIAL HISTORY: Ongoing tobacco use. She has at least 1 child. REVIEW OF SYSTEMS: As noted in the HPI, but is otherwise negative. PHYSICAL EXAMINATION: General: Reveals a healthy-appearing white female who has just completed an echocardiogram. She transitioned from the bed to the bedside commode to urinate. She did not have excessive work of breathing. Vital signs: Blood pressure 138/79, heart rate 85, respiratory rate 20, oxygen saturation 90% earlier in the day, but now 98% on 2 L per nasal cannula. HEENT: Pupils are equal and reactive. Oropharynx is clear. Neck: Supple. Chest: Reveals decreased breath sounds in both lung bases. No wheezing. No rhonchi. Cardiac Exam: S1- S2. Abdomen: Soft. Extremities: Without edema. LABORATORIES: CT scan as per HPI. Sodium 142, potassium 3.2, chloride 113, BUN 7, creatinine 0.5. White blood count 11.41, hemoglobin 6.9, platelet count 233,000. IMPRESSION: A 43-year-old with: 1. Pyelonephritis. 2. Fevers. 3. Leukocytosis. 4. Acute hypoxemic respiratory failure. 5. Pleural effusions. 6. Bibasilar atelectasis. 7. Emesis during this hospitalization. PLAN: 1. Continue broad-spectrum antibiotics. Her initial cultures were negative likely because she took Keflex before admission. 2. Diuresis this evening with follow up chest x-ray tomorrow. 3. Incentive spirometry. 4. Decrease IV fluids. 5. Counseled about the need to discontinue tobacco. cc: Corby Lewis MD
[2019-01-21] MEDS: MORPHINE IV PRN ×2 (03:42→16:14)
[2019-01-21] MEDS: MERREM 1 GM in NS 50 ML IV SCH ×3 (03:49→21:36)
[2019-01-21] MEDS: TYLENOL PO PRN (04:27)
[2019-01-21] MEDS: VANCOMYCIN 1,700 MG in NS 250 ML IV SCH (04:27)
[2019-01-21] MEDS: PRILOSEC PO SCH (06:03)
[2019-01-21 06:50] LABS: BASO# 0.03 X1000 (0.0-0.2); BASO% 0.4 % (0.0-0.8); EOS# 0.09 X1000 (0.0-0.7); EOS% 1.1 % (0.0-10.0); HEMATOCRIT 28.3 % (37.0-47.0); HEMOGLOBIN 8.2 g/dL (12.0-16.0); IMM GRAN# 0.03 X1000 (0.0-0.04); IMM GRAN% 0.4 % (0.0-0.5); LYMPH# 2.08 X1000 (1.2-3.4); LYMPH% 25.2 % (20.5-51.1); MCH 19.6 PG (27-31); MCV 67.7 FL (81-99); MONO# 0.66 X1000 (0.11-0.59); MPV 10.1 FL (7.4-10.4); NEUT# 5.38 X1000 (1.4-6.5); NEUT% 64.9 % (42.2-75.2); PLT 260 X1000 (130-400); RBC 4.18 XMIL (4.2-5.4); RDW 18.8 % (11.5-14.5); WBC 8.27 X1000 (4.8-10.8)
--- NOTE | 2019-01-21 07:16 | Diag Imaging Result Doc PS360 ---
EXAM: CHEST-PORTABLE 01/21/2019 HISTORY: abnormal exam TECHNIQUE: AP portable at 0537 COMMENT: There is ill-defined opacity in the right lower lobe partially obscuring the lateral hemidiaphragm. This is worse than on 01/18/2019. The heart size and primary vascularity are within normal limits. IMPRESSION: Right lower lobe pneumonia. Electronically signed by Sonu Albarran 01/21/2019 7:13 AM
[2019-01-21 07:19] LABS: AGAP 13; BUN 5 mg/dL (8-22); CALCIUM 8.2 mg/dL (8.8-10.2); CHLORIDE 99 mmol/L (98-107); COSMO 274; CREATININE 0.7 mg/dL (0.5-0.9); ESTIMATED GFR > 60; GLUCOSE 117 mg/dL (70-104); POTASSIUM 3.2 mmol/L (3.5-5.1); SODIUM 138 mmol/L (136-145); TCO2 26 mmol/L (25-35)
[2019-01-21] MEDS: MIRALAX PO SCH ×2 (08:31→22:52)
[2019-01-21] MEDS: NICODERM PATCH TD SCH (08:31)
--- NOTE | 2019-01-21 10:04 | Diag Imaging Result Doc PS360 ---
MRI BRAIN W/WO CONTRAST - 01/21/2019 INDICATION: Headaches and dizziness COMPARISON: None FINDINGS: There is no area of restricted diffusion. The ventricles and sulci are normal in size and contour. No intracranial mass or hemorrhage. No area of abnormal contrast enhancement. Midline structures including the optic chiasm and pituitary are normal. IMPRESSION: Negative exam. Electronically signed by Mil Patel 01/21/2019 10:02 AM
[2019-01-21 11:10] LABS: HEPATITIS PROFILE ACUTE SEE COMMENTS
[2019-01-21 13:10] LABS: IRON SATURATION 2 %; TIBC 241 ug/dL
[2019-01-21 13:13] LABS: TOTAL IRON 6 ug/dL (49-151); UNBOUND IRON 235 ug/dL (112-346)
[2019-01-21] MEDS: KLOR-CON PO SCH ×2 (13:18→16:13)
[2019-01-21] MEDS: MAGNESIUM SULFATE 2 GM/S.W.I. 2 GM/50 ML IVPB IV SCH ×2 (13:44→16:13)
--- NOTE | 2019-01-21 14:32 | GASTROENTEROLOGY CONSULTATION ---
DATE: 01/21/2019 REASON FOR CONSULTATION: Abnormal CT scan, ultrasound. HISTORY OF PRESENT ILLNESS: This is a 43-year-old female who presented to [facility] emergency room. She was admitted there for back pain, abdominal pain, fever, headache. The patient had a fever up to 103.1, per records. She was treated with sepsis protocol. She did have hypotension. She was also having some shortness of breath. She was transferred to [facility] for further evaluation. Patient has a history of pyelonephritis and she felt like this was similar symptoms to what she has had in the past. At home she had started some Keflex from a family member. She reported onset of symptoms on Sunday. She had reported shortness of breath, fever and abdominal pain. During imaging work up she had an abdominal pelvis CT scan that showed periportal edema in the liver possibly related to hepatitis, splenomegaly, nephrolithiasis and pyelonephritis on the right, possible left with minimal ascites and right ovarian cyst. Abdominal ultrasound showed hepatosplenomegaly, dilated common bile duct, borderline hydropic gallbladder, no noted cholelithiasis, right pleural effusion and trace ascites. She has also had echocardiogram. She had pulmonary arteriogram to rule out pulmonary embolus. There was no evidence for acute pulmonary embolism. She had bilateral pleural effusions, right greater than left, upper lobe coarse interstitial and ground-glass infiltrates, atelectasis and consolidation. She has been seen by pulmonology. She has received diuretics. The patient was seen on the evening of 01/20/[address] Lopez. On my rounds this morning with the patient, she was feeling some better. She had just gotten out of the shower. PAST MEDICAL HISTORY: Pyelonephritis, uterine fibroids, medullary sponge kidney, frequent urinary tract infections. PAST SURGICAL HISTORY: Tubal ligation. section. ALLERGIES: Levaquin causing a rash. HOME MEDICATIONS: Zantac 150 mg as needed. SOCIAL HISTORY: She smokes about a half a pack of cigarettes daily. No reported alcohol use. She does have a history of illicit drug use but has been clean per mother's report, for 2 years. The patient was adopted. REVIEW OF SYSTEMS: Per history of present illness. PHYSICAL EXAMINATION: Vital Signs: Temperature 98.4 degrees, pulse 83, respirations 18, blood pressure 108/54. General: Patient is awake, alert, no acute distress. At the time of my evaluation today, she had just gotten out of the shower. There was no respiratory distress noted. HEENT: Normocephalic, atraumatic. Pupils equal, round, reactive to light. Respiratory: Some crackles noted on the left. Cardiovascular: Regular rate and rhythm. Abdomen: Soft, still with tenderness, diffusely worse in the right quadrant. Extremities: No lower extremity edema noted. Neurological: Cranial nerves 2-12 grossly intact. Patient is awake, alert, oriented to person, place, and time. DIAGNOSTIC RESULTS: Laboratory: WBC 8.27, hemoglobin 8.2, hematocrit 28.3, MCV 67.7, platelets 268,000. Chemistry 138, potassium 3.2 chloride 99, CO2 26, BUN 5, creatinine 0.7, glucose 117, calcium 8.2, total bilirubin 0.30 AST 46, ALT 38, alkaline phosphatase 84, amylase 29, lipase 8. Imaging studies as reported above. ASSESSMENT AND PLAN: 1. Sepsis due to pyelonephritis. 2. Pyelonephritis on antibiotics. 3. Acute respiratory distress with bilateral pleural effusions. Patient has been seen by pulmonology and has received diuretics. 4. Anemia continue to monitor hemoglobin and hematocrit. 5. Abnormal ultrasound with dilated gallbladder, possibility of common bile duct stone. Recommend magnetic resonance cholangiopancreatography for further evaluation. Also ordered a hepatitis profile due to patient's history of IV drug use. Will follow and further plans to be made as needed. Patient was also seen by Dr. Lopez on the evening of 01/20/2019. Thank you for this consultation. Dictated by GILA Park for Momo Lopez MD cc: GILA Simpson MD [facility]
--- NOTE | 2019-01-21 15:03 | Diag Imaging Result Doc PS360 ---
MRI MRCP (ABD W/O CONTRAST) - 01/21/2019 INDICATION: dilated gallbladder, possible cbd stone TECHNIQUE: COMPARISON: Prior exams FINDINGS: The proximal common bile duct is slightly dilated measuring 7.7 mm. This tapers smoothly distally. There is no filling defect to indicate a stone. The main pancreatic duct is normal. Anatomy is conventional. There is a small cyst in the right lobe of the liver. There are ill-defined geographic areas of cortical-based signal abnormality of both kidneys. This is primarily hypointense on most sequences. No hydronephrosis. No fluid collections. IMPRESSION: 1. Slightly dilated proximal common bile duct of unclear significance. No evidence of common bile duct stone. 2. Heterogeneous kidneys bilaterally compatible with pyelonephritis. Correlate clinically. Electronically signed by Mil Patel 01/21/2019 3:00 PM
--- NOTE | 2019-01-21 15:19 | PROGRESS NOTE ---
DATE: 01/21/2019 INTERVAL HISTORY: Yesterday, patient had received intravenous Lasix. However, she is still net positive. MRI of the brain was ordered by Gastroenterology team for her headache and dizziness, which was unremarkable. She had made about 1.2 L of urine. Her leukocytosis has resolved. Her hypokalemia and hypomagnesemia are currently being replaced. SUBJECTIVE: Patient is feeling much better. Denies any chest pain or shortness of breath. She still has some abdominal pain, which is better than before. She has not had a bowel movement. She has been eating a little less. I discussed with her and her mother about exam findings and answered all of their questions. OBJECTIVE: Currently, temperature 98.4 degrees, pulse 83, respiratory rate 18, blood pressure 108/54, saturating 96% on room air. The patient does not appear in any acute distress. Mild conjunctival pallor. No cyanosis, clubbing, or icterus. Oral cavity is moist. Slight tonsillar enlargement without any exudates. No cervical lymphadenopathy. She has decreased air entry with inspiratory crackles on the right infrascapular region. No wheeze or rhonchi. S1, S2 normal. No murmur or gallop.Abdomen: Soft. Tenderness in right lower quadrant without any rebound or rigidity. Hypoactive bowel sounds. No lower extremity edema. She is alert and oriented x3. She is able to sit up at the edge of the bed. LABORATORY: Labs suggestive of resolution of leukocytosis, improvement in hemoglobin to 8.2 after 1 unit of transfusion, normal platelet. Hypokalemia and hypomagnesemia are being repleted. Kidney function test is normal. Repeat urine culture is pending. However, patient had taken about 6 or 7 Keflex before coming to the hospital. IMAGING: Brain MRI was unremarkable. Chest x-ray had right lower lobe pneumonia. ASSESSMENT AND PLAN: 1. Sepsis due to bilateral acute pyelonephritis. The patient had taken 6 or 7 Keflex before coming to the hospital. Blood culture and urine culture have been unremarkable. Continue intravenous meropenem and intravenous vancomycin until complete clinical recovery. She does have nonobstructive 3 mm nephrolithiasis. She should get outpatient urology evaluation. 2. Acute hypoxic respiratory failure due to bilateral pleural effusions due to volume overload after intravenous fluid resuscitation. Status post intravenous Lasix and clinical improvement, though the chest x-ray still has right lower lobe effusion finding. 3. Microcytic hypochromic anemia, likely due to menorrhagia and iron deficiency. I will keep her on oral iron sulfate and outpatient Hematology referral for need for intravenous iron therapy. 4. Medullary sponge kidney and previous episodes of multiple pyelonephritis and left-sided nephrolithiasis. Outpatient urology evaluation. 5. Others. Continue MiraLAX for constipation. 6. Dilated common bile duct with mild hepatosplenomegaly. Gastroenterology has been consulted. MRCP has been ordered. Continue full liquid diet. 7. Disposition: The patient remains inside the hospital. cc: Fredrick Sarmiento MD
[2019-01-21] MEDS: VANCOMYCIN 2,000 MG in NS 500 ML IV SCH (20:30)
--- NOTE | 2019-01-21 20:54 | PULMONOLOGY PROGRESS NOTE ---
DATE: 01/21/2019 SUBJECTIVE: The patient reports her breathing has markedly improved. She had multiple unrecorded voids yesterday. She continues to have some discomfort in the right upper quadrant/right flank. OBJECTIVE: The patient had a temperature yesterday at noon, but otherwise has been afebrile. Blood pressure 129/64, heart rate 80, respiratory rate 18, oxygen saturation 100% on room air. HEENT: Pupils are equal and reactive. Oropharynx is clear. Neck is supple. Chest reveals slight decreased breath sounds, right base. Cardiac exam: S1, S2. Abdomen is mildly tender with palpation in the right upper quadrant. Extremities are without edema. DIAGNOSTIC DATA: Chest x-ray reveals effusion at the right base, with probable improvement when compared to the CT scan of the thorax on 01/20. MRI of the brain is unremarkable. MRCP reveals minimal dilation of the proximal common bile duct with heterogenous kidneys, possibly related to pyelonephritis. LABORATORY DATA: White blood count 8.27, hemoglobin 8.2, platelet count 260,000. Sodium 138, potassium 3.2, chloride 99, bicarbonate 21, anion gap 13, BUN 5, creatinine 0.7. Immunoglobulin levels were checked. She has significant reduction in the IgG level at 600. IMPRESSION: A 43-year-old with: 1. Acute hypoxemic respiratory failure. 2. Bilateral pleural effusions. 3. Pyelonephritis. 4. Fevers. 5. Basilar atelectasis. 6. Immunoglobulin deficiency. DISCUSSION: A 43-year-old with problems outlined above. Although her intake and output suggests that she was positive overnight, her hemoglobin is elevated along with increase in serum bicarbonate, consistent with a contraction. Clinically she is improved. RECOMMENDATIONS: 1. Followup 2-view chest x-ray tomorrow. 2. Continue antibiotics. 3. Encourage smoking cessation. 4. Continue incentive spirometry. 5. Recommend patient undergo followup IgG level in 4-6 weeks to ensure she does not have common variable immunodeficiency explaining her recurrent episodes of sepsis. cc: Corby Lewis MD
[2019-01-22] MEDS: MERREM 1 GM in NS 50 ML IV SCH ×3 (03:53→20:22)
[2019-01-22] MEDS: PRILOSEC PO SCH (06:09)
[2019-01-22] MEDS: VANCOMYCIN 2,000 MG in NS 500 ML IV SCH ×2 (06:09→18:03)
[2019-01-22 08:39] LABS: BASO# 0.04 X1000 (0.0-0.2); BASO% 0.6 % (0.0-0.8); EOS# 0.19 X1000 (0.0-0.7); EOS% 2.8 % (0.0-10.0); HEMATOCRIT 31.3 % (37.0-47.0); HEMOGLOBIN 9.1 g/dL (12.0-16.0); IMM GRAN# 0.02 X1000 (0.0-0.04); IMM GRAN% 0.3 % (0.0-0.5); LYMPH# 2.17 X1000 (1.2-3.4); LYMPH% 32.4 % (20.5-51.1); MCH 19.7 PG (27-31); MCHC 29.1 g/dL (33-37); MCV 67.9 FL (81-99); MONO# 0.76 X1000 (0.11-0.59); MONO% 11.3 % (1.7-9.3); NEUT# 3.52 X1000 (1.4-6.5); NEUT% 52.6 % (42.2-75.2); PLT 283 X1000 (130-400); RBC 4.61 XMIL (4.2-5.4); RDW 19.3 % (11.5-14.5)
--- NOTE | 2019-01-22 08:40 | Diag Imaging Result Doc PS360 ---
EXAM: CHEST-2 VIEWS INDICATION: abnormal exam TECHNIQUE: 2 views COMPARISON: 01/21/2019 FINDINGS: There has been interval improvement of the opacification at the right lung base. On the lateral view, there is a small amount of pleural fluid layering in the posterior costophrenic angle bilaterally but larger on the right. This probably account for the opacity seen on yesterday's study. It has since decreased and there is improvement of the atelectasis and/or infiltrate at the right lung base. No new consolidation is identified. Cardiac silhouette is stable. IMPRESSION: Interval improvement of the opacification at the right lung base as described above. Electronically signed by Andrea De León 01/22/2019 8:38 AM
[2019-01-22 08:58] LABS: AGAP 9; BUN 4 mg/dL (8-22); CALCIUM 8.4 mg/dL (8.8-10.2); CHLORIDE 104 mmol/L (98-107); COSMO 275; CREATININE 0.6 mg/dL (0.5-0.9); ESTIMATED GFR > 60; GLUCOSE 107 mg/dL (70-104); POTASSIUM 4.1 mmol/L (3.5-5.1); SODIUM 139 mmol/L (136-145); TCO2 26 mmol/L (25-35)
[2019-01-22] MEDS: NICODERM PATCH TD SCH (09:05)
[2019-01-22] MEDS: FERROUS SULFATE PO SCH (09:06)
[2019-01-22] MEDS: MIRALAX PO SCH (09:06)
[2019-01-22] MEDS: TYLENOL PO PRN (13:18)
--- NOTE | 2019-01-22 14:58 | GASTROENTEROLOGY PROGRESS NOTE ---
DATE: 01/22/2019 SUBJECTIVE: Patient was lying in bed in no acute distress. She states she is feeling a little better. She had an MRCP on 01/21/2019. Findings showed slightly dilated proximal common bile duct with no evidence of common bile duct stone. Heterogenous kidneys compatible with pyelonephritis. There was a small cyst in the right lobe of the liver. Common bile duct measured 7.7 mm. The main pancreatic duct was normal. OBJECTIVE: Vital Signs: Temperature 98.4 degrees, pulse 73, respirations 21, blood pressure 134/66. General: Patient is awake and alert, no acute distress. She is asking for advancement of her diet. LABORATORY: Hematology: WBC 6.70, hemoglobin 9.1, hematocrit 31.3, MCV 67.9, platelets 283. Chemistry: Sodium 139, potassium 4.1, chloride 104, CO2 26. BUN 4, creatinine 0.6, glucose 107, calcium 8.4. ASSESSMENT AND PLAN: 1. Sepsis. 2. Pyelonephritis. 3. Acute respiratory failure has improved following with Pulmonology. 4. Anemia. 5. Slightly dilated Common bile duct with magnetic resonance cholangiopancreatography showing no evidence of stone. Liver function tests are only mildly elevated. Continue symptomatic treatment. Supportive care. Will continue to follow. Further plans to be made according to her progress. I have discussed this case with Dr. Lopez. Dictated by GILA Park for Momo Lopez MD cc: GILA Simpson MD [facility]
--- NOTE | 2019-01-22 15:13 | PROGRESS NOTE ---
DATE: 01/22/2019 INTERVAL HISTORY: No acute events overnight. The patient has been feeling fine. Her vitals have been unremarkable. She denies any chest pain or shortness of breath. Abdominal pain has significantly decreased as well. She has been eating her regular food as well, which has been just started. VITALS: Temperature afebrile at 98.4. She has been now afebrile for almost 48 hours. Pulse 73, respiratory 21, blood pressure 134/60 and saturating 100% on room air. PHYSICAL EXAMINATION: General: Does not appear in acute distress. HEENT: Oral cavity is moist. Lungs: Air entry bilaterally equal. No wheeze, rhonchi, or crackles. She does have slightly decreased air entry on the right base as compared to left. Cardiovascular: S1, S2 normal. No murmur, rub, or gallop. Abdomen: Soft. She has midline abdominal hernia which is slightly tender, but otherwise no tenderness. Active bowel sounds. No costovertebral angle tenderness. Extremities: No lower extremity edema. LABORATORY: Labs are suggestive of resolution of leukocytosis, microcytic anemia with stable hemoglobin. She does have normal electrolytes. MICROBIOLOGY: Blood culture and urine culture no growth to date. ASSESSMENT AND PLAN: 1. Sepsis due to bilateral acute pyelonephritis, status post 6 or 7 Keflex tablets before coming to the hospital. Likely, because of that, negative blood and urine cultures so far. Continue intravenous meropenem and intravenous vancomycin. Start patient on oral levofloxacin starting tomorrow since she has been fever free for almost 48 hours. She should get outpatient urology evaluation for her nonobstructive 3 mm nephrolithiasis. 2. Acute hypoxic respiratory failure due to bilateral pleural effusions due to volume overload after intravenous fluid resuscitation status post intravenous Lasix and clinical improvement. Chest x-ray suggests improvement in effusion as well. 3. Microcytic hypochromic anemia, likely due to menorrhagia and iron deficiency. Continue oral sulfate and outpatient hematology evaluation to assess for need for intravenous iron. 4. History of medullary sponge kidney and previous episodes of multiple pyelonephritis and left- sided nephrolithiasis. 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 5. Dilated common bile duct with mild hepatosplenomegaly on admission. MRCP suggests slightly dilated proximal common bile duct without any other acute pathology. No further GI intervention planned. Continue regular diet. 6. Disposition: My plan is to change antibiotics to oral tomorrow, and if the patient is able to tolerate oral antibiotic without recurrence of fever, then my plan is to discharge her home for a total treatment of about 14 days duration. Plan of care discussed with the patient. All of her questions have been answered. cc: Fredrick Sarmiento MD
[2019-01-22 16:34] LABS: DIRECT BILIRUBIN 0.1 mg/dL (0.00-0.20); TOTAL BILIRUBIN 0.22 mg/dL (0.20-1.00); TOTAL PROTEIN 5.9 g/dL (6.3-8.3)
--- NOTE | 2019-01-22 21:36 | PULMONOLOGY PROGRESS NOTE ---
DATE: 01/22/2019 SUBJECTIVE: The patient is awake, alert, and conversant. She reports her breathing has markedly improved and she is no longer short of breath. She reports her abdominal and flank pain continues to improve. OBJECTIVE: Vital Signs: The patient has been afebrile for the last 24 hours. Blood pressure 134/77, heart rate 80, respiratory rate 21, oxygen saturation 100%. HEENT: Pupils are equal and reactive. Oropharynx is clear. Neck: Supple. Chest: Good air entry bilaterally without wheezing, rales, or tactile fremitus. Cardiac: S1-S2. Abdomen: Soft. Extremities: No significant edema. LABORATORY AND DIAGNOSTIC DATA: Chest x-ray reveals near-complete clearing of infiltrates and effusions. There is a trace effusion at the right base. Lung doan appear clear. White blood count 6.7, hemoglobin 9.1, platelet count 283,000. Sodium 139, potassium 4.1, chloride 104, bicarbonate 26, BUN 4, creatinine 0.6. There is no new microbiology data. IMPRESSION: A 43-year-old with: 1. Bilateral effusions. 2. Pyelonephritis. 3. Immunoglobulin deficiency. 4. Tobacco use. DISCUSSION: A 43-year-old with the problems outlined above. She is now on room air. Her chest x- ray is near completely clear. Her flank and abdominal pain continue to decrease with treatment of her pyelonephritis. RECOMMENDATIONS: 1. Discontinue oxygen. 2. Agree with transitioning to oral antibiotics. 3. Encourage smoking cessation. 4. Recommend followup IgG level in 4 to 6 weeks. 5. No additional recommendations. Pulmonary Medicine will sign off, but available for questions if needed. cc: Corby Lewis MD
[2019-01-23] MEDS: PRILOSEC PO SCH (06:46)
[2019-01-23 07:37] LABS: BASO# 0.07 X1000 (0.0-0.2); EOS# 0.32 X1000 (0.0-0.7); EOS% 4.5 % (0.0-10.0); HEMATOCRIT 32.3 % (37.0-47.0); HEMOGLOBIN 9.6 g/dL (12.0-16.0); IMM GRAN# 0.05 X1000 (0.0-0.04); IMM GRAN% 0.7 % (0.0-0.5); LYMPH# 2.36 X1000 (1.2-3.4); LYMPH% 33.1 % (20.5-51.1); MCHC 29.7 g/dL (33-37); MCV 67.3 FL (81-99); MONO# 0.64 X1000 (0.11-0.59); MPV 9.4 FL (7.4-10.4); NEUT# 3.68 X1000 (1.4-6.5); NEUT% 51.7 % (42.2-75.2); PLT 328 X1000 (130-400); RDW 19.7 % (11.5-14.5); WBC 7.12 X1000 (4.8-10.8)
[2019-01-23 08:17] LABS: AGAP 14; BUN 9 mg/dL (8-22); CALCIUM 8.9 mg/dL (8.8-10.2); CHLORIDE 100 mmol/L (98-107); COSMO 275; CREATININE 0.6 mg/dL (0.5-0.9); ESTIMATED GFR > 60; GLUCOSE 112 mg/dL (70-104); POTASSIUM 3.9 mmol/L (3.5-5.1); SODIUM 138 mmol/L (136-145); TCO2 24 mmol/L (25-35)
[2019-01-23] MEDS ORDERED: LEVAQUIN PO SCH (09:00)
[2019-01-23] MEDS: NICODERM PATCH TD SCH (10:01)
[2019-01-23] MEDS: FERROUS SULFATE PO SCH (10:01)
[2019-01-23 12:16] VITALS: BP 124/66
--- NOTE | 2019-01-23 15:04 | DISCHARGE SUMMARY ---
ADMISSION DATE: 01/18/2019 DISCHARGE DATE: 01/23/2019 DISCHARGE DIAGNOSES: 1. Sepsis due to pyelonephritis. 2. Acute hypoxemic respiratory failure due to bilateral pleural effusion due to volume overload after intravenous fluid resuscitation. 3. Microcytic anemia. 4. History of medullary sponge kidney and previous episode of multiple pyelonephritis and left- sided nephrolithiasis. 5. Dilated common bile duct with mild hepatosplenomegaly on admission. PROCEDURES PERFORMED: 1. Chest x-ray dated 01/18/2019. Impression: No evidence of acute disease. 2. Abdomen and pelvis CT scan dated 01/18/2019. Impression: Periportal edema in the liver which is a nonspecific finding but may be seen in hepatitis, hepatomegaly, nephrolithiasis and pyelonephritis on the right, if not on the left, minimal ascites. Right ovarian cyst. 3. Abdominal ultrasound dated 01/20/2019. Impression: Hepatosplenomegaly, dilated common bile duct and borderline hydropic gallbladder, no cholelithiasis, right pleural effusion and trace ascites. 4. Pulmonary arteriogram dated 01/20/2019. Impression: No evidence of acute pulmonary embolism, bilateral pleural effusion, right greater than left, upper lobe coarse interstitial and ground- glass infiltrates, atelectasis and consolidation bilateral lower lobes, right greater than left. 5. Echocardiogram dated 01/20/2019. Findings: Ejection fraction around 60% with normal wall motion, trace mitral regurgitation. 6. Brain MRI dated 01/21/2019. Impression: Negative exam. 7. Chest x-ray dated 01/21/2019. Impression: Right lower lobe pneumonia. 8. MRCP dated 01/21/2019. Impression: Slightly dilated proximal common bile duct of unclear significance, no evidence of common bile duct stone, heterogeneous kidney bilaterally compatible with a pyelonephritis. 9. Chest x-ray dated 01/21/2019. Impression: Interval improvement of the opacification of the right lung base. 10. Chest x-ray dated 01/22/2019. Interval improvement of the opacification of the right lung base. CONSULTS: Gastroenterology department, Dr. Lopez; pulmonary department, Dr. Corby Lewis. HOSPITAL COURSE: A 43-year-old, female admitted on 01/18/2019. She presented to [facility] with the chief complaint of low back pain, generalized abdominal pain with nausea, fever, and headache for the last 24 hours. As per the patient, she has had pyelonephritis in the past and that feels like she has this again. She actually started Keflex the day before of admission. She was found to have pyelonephritis bilaterally with right greater than left, according to CT scan. Temperature was around 103.1 in the emergency room. She was treated with sepsis protocol. Blood pressure dropped to the 70s after receiving 30 mL/kg bolus per sepsis protocol. Blood pressure remained in the 100 to 110 range systolic and heart rate was decreased from 120s to 80s and 90s. She was admitted to the ICU. She was placed on telemetry. She was placed on Levophed if the blood pressure dropped below 100 systolic or the MAP dropped below 65 or 60. She received IV hydration. They started this patient on vancomycin and Zosyn. Then she started to feel better but then she started also complaining of shortness of breath. A CT angiogram of the chest was ordered to rule out pulmonary embolism. An abdomen and pelvis CT scan showed periportal edema, splenomegaly but the abdominal ultrasound showed dilated common bile duct and borderline hydropic gallbladder. No cholelithiasis. Gastroenterology department was consulted. An MRCP was done that showed a slight dilation of the proximal common bile duct of unclear significance but no evidence of common bile duct stone, heterogeneous kidneys bilaterally, compatible with pyelonephritis. For her respiratory failure, she was evaluated by the pulmonary department who suggested to continue with broad spectrum antibiotics, diurese this patient, serial chest x-rays, spirometer, and discontinue tobacco use. Then she started to feel better after getting treatment on a daily basis. Today, this patient is completely asymptomatic. She was placed on levofloxacin today so she can go home but she states that she is allergic to that, so I will change it to Bactrim. The urine culture is negative, probably because she took some medications before coming to the hospital, Keflex. Blood culture is negative as well. Today, like I said, she is completely asymptomatic, so we will discharge this patient home with a followup with gastroenterology department as well as hematology department to take care of her iron deficiency anemia. She seems to understand and she agreed with the plan. PHYSICAL EXAMINATION: Vital Signs: Temperature 98.8 degrees, pulse 85, respiratory rate 19, blood pressure 124/66, oxygen saturation 100% on room air. HEENT: Head normocephalic. No trauma. PERRLA. Neck: Supple. No JVD. No masses. Central trachea. Chest: Clear to auscultation. No wheezing. No rales. Abdomen: Soft, nontender, nondistended. Extremities: No edema, no clubbing, no cyanosis. Neurological Examination: The patient is alert. She is oriented x3. No focal deficits. LABORATORY: WBCs 7.1, hemoglobin 9.6, hematocrit 32.3, platelets 238,000. Sodium 138, potassium 3.9, chloride 100, bicarbonate 24, BUN 9, creatinine 0.6, glucose 112, calcium 8.9. DISCHARGE MEDICATIONS: Ferrous sulfate 325 mg p.o. daily, omeprazole 40 mg p.o. daily, Bactrim DS 1 tablet p.o. q.12 hours to complete 14 days (x20 tablets). Time discharging this patient, 35 minutes. cc: Kaden Abrams MD
== END 2019-01-23 12:59 | disposition home or self-care (01) | DRG 871 ==
LOC: P.ED 12:37 → SUATTDRO 16:57 → P.ICU 16:57 → 3N 01-20 14:46
PROVIDERS: ATTEND Internal Medicine
CPT/HCPCS: 36430; 70553; 71010; 71020; 71045; 71046; 71275; 74177; 74181; 76700; 80048; 80053; 80074; 80076; 80202; 81001; 81025; 82150; 82550; 82728; 82784; 83540; 83550; 83605; 83690; 83735; 84484; 85025; 85610; 85730; 86850; 86900; 86901; 86920; 87040; 87088; 93005; 93010; 93306; 94761; 94799; 96365; 96366; 96367; 96375; 99285; A9270; A9579; J0131; J1885; J1940; J2060; J2185; J2270; J2405; J2543; J3370; J3475; J7030; J7040; J7050; P9016; Q9967